=== PATIENT | female | born 2000 | race Caucasian/White ===

== ENCOUNTER 2021-03-25 21:56 | Observation (INO) | payer BC, OTHER ==
[2021-03-25] MEDS ORDERED: SODIUM CHLORIDE 0.9% 1,000 ML IV STA (22:37)
[2021-03-25] MEDS ORDERED: SODIUM CHLORIDE 0.9% 500 ML 500 ML IV STA (22:37)
--- NOTE | 2021-03-25 22:37 | ED ---
Psych HPI - General Chief Complaint: Psychiatric Symptoms Stated Complaint: Mental Health Time Seen by Provider: 03/25/21 22:09 Source: patient, EMS, RN notes reviewed, old records reviewed Mode of arrival: EMS Limitations: no limitations - History of Present Illness Initial Comments: This is a 20-year-old female to the emergency room tonight. Patient's presents today for evaluation regards to psychiatric evaluation. Patient does admit to taking overdose on Tylenol PM tonight. Patient took about 10 pills as a suicide attempt. She is petition by boyfriend who is here in the emergency department. Patient does admit to above to MD Complaint: suicidal ideation, feels depressed -: unknown Associated Psychiatric Symptoms: depression, suicidal ideation History of same: Yes Quality: intermittent, getting worse Improves With: none Worsens With: none Context: not taking psychiatric medications, significant life stressor Associated Symptoms: denies other symptoms Treatments Prior to Arrival: placed on mental health hold If Self Harm: admits thoughts of self harm, has acted on plan - Related Data Home Medications Medication Instructions Recorded Confirmed No Known Home Medications 11/06/15 11/06/15 Allergies Allergy/AdvReac Type Severity Reaction Status Date / Time No Known Allergies Allergy Verified 03/25/21 22:32 Review of Systems ROS Statement: Those systems with pertinent positive or pertinent negative responses have been documented in the HPI. ROS Other: All systems not noted in ROS Statement are negative. Past Medical History Past Medical History: No Reported History History of Any Multi-Drug Resistant Organisms: None Reported Past Surgical History: Section Past Psychological History: ADD/ADHD, Anxiety Smoking Status: Never smoker Past Alcohol Use History: None Reported Past Drug Use History: None Reported General Exam Limitations: no limitations General appearance: alert, in no apparent distress, anxious Head exam: Present: atraumatic, normocephalic, normal inspection Eye exam: Present: normal appearance, PERRL, EOMI. Absent: scleral icterus, conjunctival injection, periorbital swelling ENT exam: Present: normal exam, mucous membranes dry Neck exam: Present: normal inspection. Absent: tenderness, meningismus, lymphadenopathy Respiratory exam: Present: normal lung sounds bilaterally. Absent: respiratory distress, wheezes, rales, rhonchi, stridor Cardiovascular Exam: Present: normal rhythm, tachycardia, normal heart sounds. Absent: systolic murmur, diastolic murmur, rubs, gallop, clicks GI/Abdominal exam: Present: soft, normal bowel sounds. Absent: distended, tenderness, guarding, rebound, rigid Extremities exam: Present: normal inspection, full ROM, normal capillary refill. Absent: tenderness, pedal edema, joint swelling, calf tenderness Back exam: Present: normal inspection Neurological exam: Present: alert, oriented X3, CN II-XII intact Psychiatric exam: Present: normal affect, normal mood Skin exam: Present: warm, dry, intact, normal color. Absent: rash Course Vital Signs 03/25/21 03/25/21 03/25/21 22:27 22:50 23:31 Temperature 98.8 F Pulse Rate 152 H 151 H 146 H Respiratory 18 18 16 Rate Blood Pressure 143/104 145/99 142/99 O2 Sat by Pulse 100 100 100 Oximetry - Reevaluation(s) Reevaluation #1: 03/26/21 00:18 Medical record is reviewed Medical Decision Making - Medical Decision Making 20 female to the ED c/o overdose attempt, patient is suicidal and took tylenol PM as overdose, patient is a significant overdose for both Aleve and Benadryl, patient will be admitted for observation as well as psychiatric evaluation and treatment - Lab Data Result diagrams: 03/25/21 22:51 03/25/21 22:51 Lab Results 03/25/21 03/25/21 03/25/21 Range/Units 22:26 22:26 22:51 WBC 8.9 (3.8-10.6) k/uL RBC 4.76 (3.80-5.40) m/uL Hgb 13.7 (11.4-16.0) gm/dL Hct 40.2 (34.0-46.0) % MCV 84.3 (80.0-100.0) fL MCH 28.7 (25.0-35.0) pg MCHC 34.0 (31.0-37.0) g/dL RDW 13.4 (11.5-15.5) % Plt Count 268 (150-450) k/uL MPV 7.2 Neutrophils % 73 % Lymphocytes % 21 % Monocytes % 3 % Eosinophils % 1 % Basophils % 0 % Neutrophils # 6.5 (1.3-7.7) k/uL Lymphocytes # 1.9 (1.0-4.8) k/uL Monocytes # 0.3 (0-1.0) k/uL Eosinophils # 0.1 (0-0.7) k/uL Basophils # 0.0 (0-0.2) k/uL Sodium (137-145) mmol/L Potassium (3.5-5.1) mmol/L Chloride (98-107) mmol/L Carbon Dioxide (22-30) mmol/L Anion Gap mmol/L BUN (7-17) mg/dL Creatinine (0.52-1.04) mg/dL Est GFR (CKD-EPI)AfAm (>60 ml/min/1.73 sqM) Est GFR (CKD-EPI)NonAf (>60 ml/min/1.73 sqM) Glucose (74-99) mg/dL Calcium (8.4-10.2) mg/dL Total Bilirubin (0.2-1.3) mg/dL AST (14-36) U/L ALT (4-34) U/L Alkaline Phosphatase (38-126) U/L Total Protein (6.3-8.2) g/dL Albumin (3.5-5.0) g/dL Lipase (23-300) U/L Urine HCG, Qual Not Detected (Not Detectd) Salicylates mg/dL Urine Opiates Screen Not Detected (NotDetected) Ur Oxycodone Screen Not Detected (NotDetected) Urine Methadone Screen Not Detected (NotDetected) Ur Propoxyphene Screen Not Detected (NotDetected) Acetaminophen ug/mL Ur Barbiturates Screen Not Detected (NotDetected) U Tricyclic Antidepress Not Detected (NotDetected) Ur Phencyclidine Scrn Not Detected (NotDetected) Ur Amphetamines Screen Not Detected (NotDetected) U Methamphetamines Scrn Not Detected (NotDetected) U Benzodiazepines Scrn Not Detected (NotDetected) Urine Cocaine Screen Not Detected (NotDetected) U Marijuana (THC) Screen Not Detected (NotDetected) Serum Alcohol mg/dL 03/25/21 Range/Units 22:51 WBC (3.8-10.6) k/uL RBC (3.80-5.40) m/uL Hgb (11.4-16.0) gm/dL Hct (34.0-46.0) % MCV (80.0-100.0) fL MCH (25.0-35.0) pg MCHC (31.0-37.0) g/dL RDW (11.5-15.5) % Plt Count (150-450) k/uL MPV Neutrophils % % Lymphocytes % % Monocytes % % Eosinophils % % Basophils % % Neutrophils # (1.3-7.7) k/uL Lymphocytes # (1.0-4.8) k/uL Monocytes # (0-1.0) k/uL Eosinophils # (0-0.7) k/uL Basophils # (0-0.2) k/uL Sodium 141 (137-145) mmol/L Potassium 4.0 (3.5-5.1) mmol/L Chloride 108 H (98-107) mmol/L Carbon Dioxide 20 L (22-30) mmol/L Anion Gap 13 mmol/L BUN 8 (7-17) mg/dL Creatinine 0.61 (0.52-1.04) mg/dL Est GFR (CKD-EPI)AfAm >90 (>60 ml/min/1.73 sqM) Est GFR (CKD-EPI)NonAf >90 (>60 ml/min/1.73 sqM) Glucose 110 H (74-99) mg/dL Calcium 10.0 (8.4-10.2) mg/dL Total Bilirubin 0.3 (0.2-1.3) mg/dL AST 17 (14-36) U/L ALT 13 (4-34) U/L Alkaline Phosphatase 72 (38-126) U/L Total Protein 7.5 (6.3-8.2) g/dL Albumin 4.3 (3.5-5.0) g/dL Lipase 180 (23-300) U/L Urine HCG, Qual (Not Detectd) Salicylates <1.0 mg/dL Urine Opiates Screen (NotDetected) Ur Oxycodone Screen (NotDetected) Urine Methadone Screen (NotDetected) Ur Propoxyphene Screen (NotDetected) Acetaminophen <10.0 ug/mL Ur Barbiturates Screen (NotDetected) U Tricyclic Antidepress (NotDetected) Ur Phencyclidine Scrn (NotDetected) Ur Amphetamines Screen (NotDetected) U Methamphetamines Scrn (NotDetected) U Benzodiazepines Scrn (NotDetected) Urine Cocaine Screen (NotDetected) U Marijuana (THC) Screen (NotDetected) Serum Alcohol <10 mg/dL - EKG Data -: EKG Interpreted by Me (EKG shows sinus tachycardia rate of 57, VA 121 QRS 76 QTC 40) Critical Care Time Critical Care Time: Yes Total Critical Care Time: 31 Disposition Clinical Impression: Depression, Suicidal ideation, Psychosis, Drug-induced psychotic disorder, Anticholinergic syndrome Narrative: Advil PM Overdose Disposition: ADMITTED IP TO THIS HOSP Condition: Serious Is patient prescribed a controlled substance at d/c from ED?: No Referrals: None,Stated [Primary Care Provider] - 1-2 days
[2021-03-25] MEDS ORDERED: LORazepam 2 MG/ML INJ IV STA (22:38)
[2021-03-25 23:00] LABS: Basophils % (A) 0 %; Eosinophils # (A) 0.1 k/uL (0-0.7); Eosinophils % (A) 1 %; HCT 40.2 % (34.0-46.0); HGB 13.7 gm/dL (11.4-16.0); Lymphocytes # (A) 1.9 k/uL (1.0-4.8); Lymphocytes % (A) 21 %; MCH 28.7 pg (25.0-35.0); MCV 84.3 fL (80.0-100.0); Mean Platelet Volume 7.2; Monocytes # (A) 0.3 k/uL (0-1.0); Monocytes % (A) 3 %; Neutrophils # (A) 6.5 k/uL (1.3-7.7); Neutrophils % (A) 73 %; Platelet Count 268 k/uL (150-450); RBC 4.76 m/uL (3.80-5.40); RDW 13.4 % (11.5-15.5); WBC 8.9 k/uL (3.8-10.6)
[2021-03-25 23:07] LABS: Amphetamine Screen,Urine Not Detected (NotDetected); Barbiturate Screen,Urine Not Detected (NotDetected); Benzodiazepines Screen,Urine Not Detected (NotDetected); Cocaine Screen,Urine Not Detected (NotDetected); Methadone Screen, Urine Not Detected (NotDetected); Opiate Screen,Urine Not Detected (NotDetected); Oxycodone Screen, Urine Not Detected (NotDetected); Phencyclidine Screen,Urine Not Detected (NotDetected); Tricyclic Antidepressant,Urine Not Detected (NotDetected); Urn Cannabinoid Scrn Not Detected (NotDetected)
[2021-03-25 23:09] LABS: ALT 13 U/L (4-34); AST 17 U/L (14-36); Acetaminophen <10.0 ug/mL; African American GFR (CKD) >90 (>60 ml/min/1.73 sqM); Albumin 4.3 g/dL (3.5-5.0); Alcohol <10 mg/dL; Alkaline Phosphatase 72 U/L (38-126); Anion Gap 13 mmol/L; Blood Urea Nitrogen 8 mg/dL (7-17); Carbon Dioxide 20 mmol/L (22-30); Chloride 108 mmol/L (98-107); Glucose 110 mg/dL (74-99); Lipase 180 U/L (23-300); Non-African American GFR(CKD) >90 (>60 ml/min/1.73 sqM); Salicylate <1.0 mg/dL; Sodium 141 mmol/L (137-145); Total Bilirubin 0.3 mg/dL (0.2-1.3); Total Protein 7.5 g/dL (6.3-8.2)
[2021-03-26] MEDS ORDERED: DIAZEPAM 5 MG/ML 2 ML INJ IVP STA (00:17)
[2021-03-26] MEDS ORDERED: SODIUM CHLORIDE 0.9% 1,000 ML IV STA ×2 (00:17→00:36)
[2021-03-26] MEDS ORDERED: ACETAMINOPHEN TAB 325 MG TAB PO PRN (00:22)
[2021-03-26] MEDS ORDERED: LORazepam 2 MG/ML INJ IV PRN (00:22)
[2021-03-26] MEDS ORDERED: ONDANSETRON 4 MG/2 ML VIAL IVP PRN (00:22)
[2021-03-26] MEDS ORDERED: NALOXONE 0.4 MG/ML 1 ML VIAL IV PRN (00:22)
[2021-03-26] MEDS: SODIUM CHLORIDE 0.9% 1,000 ML IV SCH ×2 (00:45→08:20)
[2021-03-26 02:26] VITALS: RESP 18
[2021-03-26] MEDS ORDERED: PANTOPRAZOLE 40 MG/10 ML VIAL IVP ONE (03:33)
--- NOTE | 2021-03-26 03:36 | P.HPIM ---
History of Present Illness H&P Date: 03/26/21 Patient is a 20-year-old female with a PMH of depression presented to the emergency room after a suicide attempt by ingestion of Advil PM. The patient reports that she recently had been feeling poorly about herself and that she didn't attempt to harm herself took more than 10 pills of Advil PM (200-38 mg). She reports feeling somewhat anxious but denied any additional complaints. She denied experiencing abdominal pain, nausea, vomiting, or bloody stools. Also denied fevers, chills, chest pain, shortness of breath, cough. EKG in the emergency room revealed sinus tachycardia at 157 bpm. Laboratory evaluation was unremarkable. The case was discussed with poison control as per the ED phys ician who advised to monitor the patient overnight due to elevated risk of bleeding and for anticholinergic symptoms. Review of systems: Pertinent positives and negatives as discussed in HPI, a complete review of systems was performed and all other systems are negative. Physical examination: General: non toxic, no distress, appears at stated age, normal weight Derm: no unusual rashes/lesions no unusual ecchymoses, warm, dry Head: atraumatic, normocephalic, symmetric Eyes: EOMI, no lid lag, anicteric sclera, pupils equal round reactive to light ENT: Nose and ears atraumatic, no thrush, no pharyngeal erythema Neck: No thyromegaly, no cervical lymphadenopathy, trachea midline, supple Mouth: no lip lesion, mucus membranes moist Cardiovascular: Tachycardic, no murmur, positive posterior tibial pulse bilateral, no edema, capillary refill less than 2 seconds Lungs: CTA bilateral, no rhonchi, no rales , no accessory muscle use Abdominal: soft, nontender to palpation, no guarding, no appreciable organomegaly, normal bowel sounds Ext: no gross muscle atrophy, muscle strength 5 out of 5 in all 4 extremities grossly, no contractures, Neuro: CN II-XI grossly intact, light touch intact all 4 extremities, finger to nose within normal limits, Psych: Alert, oriented, anxious affect Assessment/plan Ibuprofen and diphenhydramine overdose -Protonix IV -Ativan when necessary -Cardiac monitoring -Monitor CBC and kidney function Depression with suicidal ideation -Psychiatry consulted -One-to-one observation DVT prophylaxis -IPCDs The patient is admitted with an anticipated less than 2 midnight stay for evaluation of overdose CODE STATUS: Full Code Discussed with: Patient Anticipated discharge date: in am Anticipated discharge place: [facility] Past Medical History Past Medical History: No Reported History Additional Past Medical History / Comment(s): Past suicide attempts and self harm History of Any Multi-Drug Resistant Organisms: None Reported Past Surgical History: Section Past Anesthesia/Blood Transfusion Reactions: No Reported Reaction Past Psychological History: ADD/ADHD, Anxiety Smoking Status: Never smoker Past Alcohol Use History: None Reported Past Drug Use History: None Reported Medications and Allergies Home Medications Medication Instructions Recorded Confirmed Type No Known Home Medications 11/06/15 11/06/15 History Allergies Allergy/AdvReac Type Severity Reaction Status Date / Time No Known Allergies Allergy Verified 03/25/21 22:32 Physical Exam Vitals: Vital Signs Temp Pulse Pulse Resp BP BP Pulse Ox 03/26/21 02:50 157 H 18 03/26/21 01:59 98.1 F 157 H 18 133/90 100 03/26/21 01:48 98.8 F 134 H 16 131/64 98 03/26/21 01:15 134 H 16 131/64 98 03/26/21 00:45 158 H 16 128/102 99 03/25/21 23:31 146 H 16 142/99 100 03/25/21 22:50 151 H 18 145/99 100 03/25/21 22:27 98.8 F 152 H 18 143/104 100 Intake and Output 03/25/21 03/25/21 03/26/21 14:59 22:59 06:59 Other: Voiding Method Toilet Weight 58.967 kg 58.967 kg Results CBC & Chem 7: 03/25/21 22:51 03/25/21 22:51 Labs: Abnormal Lab Results - Last 24 Hours (Table) 03/25/21 Range/Units 22:51 Chloride 108 H (98-107) mmol/L Carbon Dioxide 20 L (22-30) mmol/L Glucose 110 H (74-99) mg/dL Thrombosis Risk Factor Assmnt - Choose All That Apply Any of the Below Risk Factors Present?: No Other Risk Factors: No Other congenital or acquired thrombophilia - If yes, enter type in comment: No Thrombosis Risk Factor Assessment Level: Very Low Risk
[2021-03-26 06:41] LABS: HCT 34.6 % (34.0-46.0); HGB 11.7 gm/dL (11.4-16.0); MCHC 33.7 g/dL (31.0-37.0); MCV 86.2 fL (80.0-100.0); Mean Platelet Volume 7.1; Platelet Count 224 k/uL (150-450); RBC 4.02 m/uL (3.80-5.40); RDW 13.6 % (11.5-15.5)
[2021-03-26 06:55] LABS: African American GFR (CKD) >90 (>60 ml/min/1.73 sqM); Anion Gap 6 mmol/L; Blood Urea Nitrogen 2 mg/dL (7-17); Calcium 8.1 mg/dL (8.4-10.2); Carbon Dioxide 19 mmol/L (22-30); Chloride 115 mmol/L (98-107); Glucose 88 mg/dL (74-99); Non-African American GFR(CKD) >90 (>60 ml/min/1.73 sqM); Potassium 4.2 mmol/L (3.5-5.1); Sodium 140 mmol/L (137-145)
[2021-03-26] MEDS ORDERED: PANTOPRAZOLE 40 MG/10 ML VIAL IVP SCH (09:00)
[2021-03-26 13:46] LABS: African American GFR (CKD) >90 (>60 ml/min/1.73 sqM); Anion Gap 5 mmol/L; Blood Urea Nitrogen <2 mg/dL (7-17); Calcium 8.6 mg/dL (8.4-10.2); Carbon Dioxide 20 mmol/L (22-30); Chloride 114 mmol/L (98-107); Glucose 81 mg/dL (74-99); Non-African American GFR(CKD) >90 (>60 ml/min/1.73 sqM); Potassium 3.5 mmol/L (3.5-5.1); Sodium 139 mmol/L (137-145)
--- NOTE | 2021-03-26 14:30 | P.PN ---
Progress Note - Text Progress Note Date: 03/26/21 Medically optimized for discharge. Formal discharge summary to follow.
[2021-03-26 15:47] VITALS: BP 126/91; PULSE 114; TEMP 98.9
--- NOTE | 2021-03-26 16:45 | P.CN ---
Psychiatric Consult - . Consult date: 03/26/21 Consult:: 03/26/21 16:21 Psychiatric consultation This 20-yr old female living with her boyfriend and mother of 2 -yr old boy from her previous relationship was admitted to the emergency presenting with suicidal ideation and impulsive suicidal attempt with overdosae with 10 Advil. She was stablized amd was discharged by this afternoon from the medical unit . She did not present with any adverse sequela to her overdose; No loss of consciousness or no GIP hemmorhage. She was asssessed by the Psychiatric emergency psychiatric health care provider regarding her potential brief admisison. her male friend petitioned her for psychiatric stabilization which she was reluctant to consdier seriously. Chief complaint; Uanble to cope and impulsive drug overdose HPI: With no previous psychiatric involvemnet with [facility], she has been very familiar with the mental health framework of reference with regard the diagnosis of BPD: Borderline personality disorder. She talked about her therapeutic experiences with her therapists, through intensive outpatient counselling session. once weekly. She did not have any regular psychiagric contact and appeared to develop negative attitude and reaction towards medication . She was unaware of the wide range of Rxs options and rTMS options. She identified the major stressor to be related to her insecure attachment towards her son. She did nto provide any history of post- depression: she focussed primarily on the [place] II disorder but later on she was found to be sobbing in her bed. She was not concerned over her medical condition; she was given a reassurance that she would not have any adverse adverse events from the overdose. She talked at some lenght about her argument with her boyfriend who was concerned for her mood instability. She faield to recognzie mood disorder co-morbidity was an important ingredient to Bipolar disroder. She was feeling highly anxious over the custody arrangement wherby her 2-yr son would be spending 6-month with his biological father in [place] . She would have to agree on direct contact for the remainder 6 months. the nature of her attachment and nurturing experiences relative to her mood changes were unknown. She admitted she mayhave a ADHD and ADH in eh past and related her impulsive suicidal attempt to the core ADHD symptoms. She did not give much credit to the early drug treatment for ADHD: psychostimulants. She was not aware of the use of Inturniv and Strattera whcih maybe better alternative for her ADHD. When asked whether she had sufficient protective tactics to prevent future suicidal attempts. She repeatedly stated she did not want to or to ruminate repeatedly over dying. She dismissed the seriiousness of drug overdose. She talked about she would reconnect with her therapist and make use of her crisis support in the future. Past psychiatric history: ADHD. Borderline personality disorder. the psychaitric data are unavailable for review. past substance use history: She denied she has substance use history. Family history of psychiatric and substance use was unknown MSE: She was resting comfortably in her bed with iv line in palce. No adverse change in her vitals. Nurse was awaiting formal medical discharge soon but was waiting for filing petition for psychiatric admisison by late afternoon Mar 26, 2021.Speech cohrent and articulate. she cried briefly in the context of her argument with her boyfriend and separation from her 2-yr son next week. Affect : highly anxious and sad, with no overt psychotic features of delusions or hallucinations. She repeatedly she did not want to and did not have repeated fixed suicidal ideation or plan. She did not further elaborate on "impulsive'. . Cogniton: oriented. command above average vocabulary and knowledge of psychiatric syndromes. Insight and judgment was marginal Diagnosis: given her history, She may have comorbid recurrent MAJOR DEPRESSIVE Disorder in addiction to her Borderline personality. No manic history. However, her relatiionship has to be further clarified . She may benefit from brief psychiatric admission with re-emphasis on Rx as the treatment option. Discharge Plan: pending petition result.
--- NOTE | 2021-03-26 17:39 | P.DS ---
Providers Date of admission: 03/26/21 00:22 Expected date of discharge: 03/26/21 Attending physician: Zeke Oscar MD Consults: 03/26/21 00:23 Consult Physician Routine Consulting Provider: Simone Carcamo Consult Reason/Comments: SI,OD Do you want consulting provider notified?: Already Contacted Primary care physician: Stated None Hospital Course: Discharge Diagnosis: Ibuprofen and diphenhydramine overdose Suicide attempt Depression Hyperchloremic metabolic acidosis secondary to IV fluid resuscitation. Hospital Course: A 20-year-old female with no significant past medical history who presented to the ER after a suicide attempt by ingestion of Advil PM. She had been feeling poorly and purposely took the pills. She denied any nausea, vomiting, or diarrhea. She is given IV fluids. Her kidney function continue to maintain well. She was determined medically stable for discharge. She was seen by Psychiatry who recommended mental health unit placement. Follow-up: Suggest PPI for the next 1 week. Patient seen and examined at bedside. She denies any nausea, vomiting, upset stomach, stomach pain or indigestion. She is upset about her boyfriend not being able to come off, but realizes she needs to be on the mental health unit and that she needs help. Vital signs reviewed and stable. General: non toxic, no distress, appears at stated age Derm: warm, dry Head: atraumatic, normocephalic, symmetric Eyes: EOMI, no lid lag, anicteric sclera Mouth: no lip lesion, mucus membranes moist Cardiovascular: S1S2 reg, no murmur, positive posterior tibial pulse bilateral, Lungs: CTA bilateral, no rhonchi, no rales , no accessory muscle use Abdominal: soft, nontender to palpation, no guarding, no appreciable organomegaly Ext: no gross muscle atrophy, no edema, no contractures Neuro: CN II-XI grossly intact, no focal neuro deficits Psych: Alert, oriented, appropriate affect A total of 25 minutes of time were spent preparing this complex discharge summary . Patient Condition at Discharge: Stable Plan - Discharge Summary New Discharge Prescriptions: New Pantoprazole Sodium [Protonix] 40 mg PO DAILY #30 tab Continue Norgestimate-Ethinyl Estradiol [Sprintec 28 Day Tablet] 1 tab PO DAILY Discharge Medication List Norgestimate-Ethinyl Estradiol [Sprintec 28 Day Tablet] 1 tab PO DAILY 03/26/21 [History] Pantoprazole Sodium [Protonix] 40 mg PO DAILY #30 tab 03/26/21 [Rx] Follow up Appointment(s)/Referral(s): None,Stated [Primary Care Provider] - 1-2 days Patient Instructions/Handouts: Depression (DC), Suicide Prevention (DC) Discharge Disposition: TRANSFER TO PSYCH HOSP/UNIT
--- NOTE | 2021-03-29 12:44 | P.DS ---
Providers Date of admission: 03/26/21 00:22 Expected date of discharge: 03/29/21 Attending physician: Zeke Oscar MD Consults: 03/26/21 00:23 Consult Physician Routine Consulting Provider: Simone Carcamo Consult Reason/Comments: SI,OD Do you want consulting provider notified?: Already Contacted Primary care physician: Stated None - Discharge Diagnosis(es) (1) Major depressive disorder Status: Acute Priority: High (2) Borderline personality disorder Status: Chronic Priority: Medium Hospital Course: Admission HPI: Initial psychiatric evaluation was completed on 03/26/[address] Bailey who wrote: "This 20-yr old female living with her boyfriend and mother of 2 -yr old boy from her previous relationship was admitted to the emergency presenting with suicidal ideation and impulsive suicidal attempt with overdosae with 10 Advil. She was stablized amd was discharged by this afternoon from the medical unit . She did not present with any adverse sequela to her overdose; No loss of consciousness or no GIP hemmorhage. She was asssessed by the Psychiatric emergency psychiatric health care provider regarding her potential brief admisison. her male friend petitioned her for psychiatric stabilization which she was reluctant to consdier seriously. Chief complaint; Uanble to cope and impulsive drug overdose HPI: With no previous psychiatric involvemnet with [facility], she has been very familiar with the mental health framework of reference with regard the diagnosis of BPD: Borderline personality disorder. She talked about her therapeutic experiences with her therapists, through intensive outpatient counselling session. once weekly. She did not have any regular psychiagric contact and appeared to develop negative attitude and reaction towards medication . She was unaware of the wide range of Rxs options and rTMS options. She identified the major stressor to be related to her insecure attachment towards her son. She did nto provide any history of post- depression: she focussed primarily on the [place] II disorder but later on she was found to be sobbing in her bed. She was not concerned over her medical condition; she was given a reassurance that she would not have any adverse adverse events from the overdose. She talked at some lenght about her argument with her boyfriend who was concerned for her mood instability. She faield to recognzie mood disorder co-morbidity was an important ingredient to Bipolar disroder. She was feeling highly anxious over the custody arrangement karon her 2-yr son would be spending 6-month with his biological father in [place] . She would have to agree on direct contact for the remainder 6 months. the nature of her attachment and nurturing experiences relative to her mood changes were unknown. She admitted she mayhave a ADHD and ADH in eh past and related her impulsive suicidal attempt to the core ADHD symptoms. She did not give much credit to the early drug treatment for ADHD: psychostimulants. She was not aware of the use of Inturniv and Strattera whcih maybe better alternative for her ADHD. When asked whether she had sufficient protective tactics to prevent future suicidal attempts. She repeatedly stated she did not want to or to ruminate repeatedly over dying. She dismissed the seriiousness of drug overdose. She talked about she would reconnect with her therapist and make use of her crisis support in the future." Hospital course: Upon admission to the unit patient was initially presenting as euthymic with some lability in mood. She however displayed fair insight and judgment into her condition and her diagnosis of borderline personality disorder. The patient was evaluated by Dr Bailey and after discussion with the patient it was agreed not to start any psychtropic medications and to rather focus on CBT and DBT for Borderline Personality symptoms. On the day of discharge, the patient is not reporting any suicidal or homicidal ideation, intention, and/or plan. She is not reporting any access to firearms or other weapons. She reports no auditory or visual hallucinations. She denies any paranoia or other delusions. The patient remains future oriented and is excited to go back to her outpatient appointments for therapy. Prior to discharge, family meeting will be arranged by social welfare clerk to answer any questions and ensure safety. Significant amount of safety planning occurred with the patient between this provider as well as with staff including identifying potential triggers for her mood dysregulation, exercising of appropriate coping skills, and the utilization of resources. Mental status exam: General Appearance: Patient appears to be stated age is alert, pleasant, and cooperative. Patient is in no acute distress and has fair hygiene and grooming Behavior: Patient is calmly seated without any agitated behavior. Eye contact is appropriate. Speech: Patient's speech is fluent and nonpressured. Mood/Affect: Patient reports their mood is "feeling good", affect is congruent and euthymic to bright. Suicidality/Homicidality: Patient denies having any suicidal or homicidal ideation intent or plan. Perceptions: Patient denies any auditory or visual hallucinations. Though content/process: There is no evidence of any delusional thought content and thought process is linear and goal-directed. Patient is future oriented. Memory and concentration: AOX3, grossly intact for the purposes of this session. Can spell "WORLD" backwards correctly. Judgment and insight: Improved with guarded prognosis Vital Signs Temp 98.9 F 03/26/21 15:46 Pulse 114 H 03/26/21 15:46 Resp 18 03/26/21 15:46 BP 126/91 03/26/21 15:46 Pulse Ox 98 03/26/21 15:46 Impression: Major depressive disorder Borderline personality disorder Plan: -Continue with discharge today as patient has improved and stabilized psychiatrically and is not currently an imminent threat to herself and/or others. Patient will remain at chronically elevated risk for harm to self and/or others due to her impulsivity. -Social work to arrange for and conduct family meeting to ensure safety upon discharge and answer any questions/concerns. Social work also to arrange for patients follow up appointments for psychiatric care along with follow up with primary care provider. -Patient counseled on abstaining from recreational drugs and marijuana and alcohol. Was informed/educated on the adverse effects on their physical and mental health. Patient verbally agreed and understood. -Patient was instructed to return to the hospital or seek immediate medical care if their psychiatric or medical symptoms do worsen or reoccur. -Strongly recommend outpatient psychotherapy - DBT discussed with patient in detail. Allergies Allergy/AdvReac Type Severity Reaction Status Date / Time No Known Allergies Allergy Verified 03/26/21 07:00 Laboratory Results WBC 7.0 k/uL (3.8-10.6) 03/26/21 06:11 RBC 4.02 m/uL (3.80-5.40) 03/26/21 06:11 Hgb 11.7 gm/dL (11.4-16.0) 03/26/21 06:11 Hct 34.6 % (34.0-46.0) 03/26/21 06:11 MCV 86.2 fL (80.0-100.0) 03/26/21 06:11 MCH 29.0 pg (25.0-35.0) 03/26/21 06:11 MCHC 33.7 g/dL (31.0-37.0) 03/26/21 06:11 RDW 13.6 % (11.5-15.5) 03/26/21 06:11 Plt Count 224 k/uL (150-450) 03/26/21 06:11 MPV 7.1 03/26/21 06:11 Neutrophils % 73 % 03/25/21 22:51 Lymphocytes % 21 % 03/25/21 22:51 Monocytes % 3 % 03/25/21 22:51 Eosinophils % 1 % 03/25/21 22:51 Basophils % 0 % 03/25/21 22:51 Neutrophils # 6.5 k/uL (1.3-7.7) 03/25/21 22:51 Lymphocytes # 1.9 k/uL (1.0-4.8) 03/25/21 22:51 Monocytes # 0.3 k/uL (0-1.0) 03/25/21 22:51 Eosinophils # 0.1 k/uL (0-0.7) 03/25/21 22:51 Basophils # 0.0 k/uL (0-0.2) 03/25/21 22:51 Sodium 139 mmol/L (137-145) 03/26/21 13:14 Potassium 3.5 mmol/L (3.5-5.1) 03/26/21 13:14 Chloride 114 mmol/L (98-107) H 03/26/21 13:14 Carbon Dioxide 20 mmol/L (22-30) L 03/26/21 13:14 Anion Gap 5 mmol/L 03/26/21 13:14 BUN <2 mg/dL (7-17) L 03/26/21 13:14 Creatinine 0.53 mg/dL (0.52-1.04) 03/26/21 13:14 Est GFR (CKD-EPI)AfAm >90 (>60 ml/min/1.73 sqM) 03/26/21 13:14 Est GFR (CKD-EPI)NonAf >90 (>60 ml/min/1.73 sqM) 03/26/21 13:14 Glucose 81 mg/dL (74-99) 03/26/21 13:14 Calcium 8.6 mg/dL (8.4-10.2) 03/26/21 13:14 Total Bilirubin 0.3 mg/dL (0.2-1.3) 03/25/21 22:51 AST 17 U/L (14-36) 03/25/21 22:51 ALT 13 U/L (4-34) 03/25/21 22:51 Alkaline Phosphatase 72 U/L (38-126) 03/25/21 22:51 Total Protein 7.5 g/dL (6.3-8.2) 03/25/21 22:51 Albumin 4.3 g/dL (3.5-5.0) 03/25/21 22:51 Lipase 180 U/L (23-300) 03/25/21 22: TSH 2.880 mIU/L (0.465-4.680) 03/25/21 22:51 Urine HCG, Qual Not Detected (Not Detectd) 03/25/21 22: Salicylates <1.0 mg/dL 03/25/21 22:51 Urine Opiates Screen Not Detected (NotDetected) 03/25/21 22:26 Ur Oxycodone Screen Not Detected (NotDetected) 03/25/21 22: Urine Methadone Screen Not Detected (NotDetected) 03/25/21 22:26 Ur Propoxyphene Screen Not Detected (NotDetected) 03/25/21 22:26 Acetaminophen <10.0 ug/mL 03/25/21 22:51 Ur Barbiturates Screen Not Detected (NotDetected) 03/25/21 22:26 U Tricyclic Antidepress Not Detected (NotDetected) 03/25/21 22:26 Ur Phencyclidine Scrn Not Detected (NotDetected) 03/25/21 22:26 Ur Amphetamines Screen Not Detected (NotDetected) 03/25/21 22:26 U Methamphetamines Scrn Not Detected (NotDetected) 03/25/21 22:26 U Benzodiazepines Scrn Not Detected (NotDetected) 03/25/21 22:26 Urine Cocaine Screen Not Detected (NotDetected) 03/25/21 22:26 U Marijuana (THC) Screen Not Detected (NotDetected) 03/25/21 22:26 Serum Alcohol <10 mg/dL 03/25/21 22:51 Patient Condition at Discharge: Stable Plan - Discharge Summary New Discharge Prescriptions: Continue Norgestimate-Ethinyl Estradiol [Sprintec 28 Day Tablet] 1 tab PO DAILY Discharge Medication List Norgestimate-Ethinyl Estradiol [Sprintec 28 Day Tablet] 1 tab PO DAILY 03/26/21 [History] Follow up Appointment(s)/Referral(s): None,Stated [Primary Care Provider] - 1-2 days Patient Instructions/Handouts: Depression (DC), Suicide Prevention (DC) Discharge Disposition: TRANSFER TO PSYCH HOSP/UNIT
== END 2021-03-26 17:53 ==
LOC: EC 21:56 → 3SCARD 03-26 00:22
PROVIDERS: ADMIT Internal Medicine; ATTEND Internal Medicine
DX: T45.0X2A Poisoning by antiallergic and antiemetic drugs, intentional self-harm, initial encounter (principal); T39.312A Poisoning by propionic acid derivatives, intentional self-harm, initial encounter; F60.3 Borderline personality disorder; F32.A Depression, unspecified; F41.9 Anxiety disorder, unspecified; F90.9 Attention-deficit hyperactivity disorder, unspecified type; E87.8 Other disorders of electrolyte and fluid balance, not elsewhere classified; R45.87 Impulsiveness; E87.2 Acidosis; R00.0 Tachycardia, unspecified; Z63.79 Other stressful life events affecting family and household; Z91.51 Personal history of suicidal behavior; F29 Unspecified psychosis not due to a substance or known physiological condition
CPT/HCPCS: 96376; 96361 ×3; 96375 ×2; 82075; 96374; 99291; 36415; 93005; 80053; 80048; 84443; 83690; 85025; 85027; 81025; 80306; 80143; 80179; G0378; G0480; J2060; J3360; C9113; 80320

== ENCOUNTER 2021-03-26 18:17 | Inpatient (IN) | payer MEDICAID ==
[2021-03-26] MEDS ORDERED: MAG HYDROX/AL HYDROX/SIMETH 30 ML CUP PO PRN (18:24)
[2021-03-26] MEDS ORDERED: LORazepam 1 MG TAB PO PRN (18:24)
[2021-03-26] MEDS ORDERED: ACETAMINOPHEN TAB 325 MG TAB PO PRN (18:24)
[2021-03-26] MEDS ORDERED: MAGNESIUM HYDROXIDE 2,400 MG/10 ML CUP PO PRN (18:24)
[2021-03-26] MEDS ORDERED: HALOPERIDOL LACTATE 5 MG/ML 1 ML VIAL IM PRN (18:24)
[2021-03-26] MEDS ORDERED: LORazepam 2 MG/ML INJ IM PRN (18:27)
--- NOTE | 2021-03-27 01:55 | P.PN ---
Progress Note - Text Progress Note Date: 03/27/21 notified by RN about this new admission but patient sleeping at this time
[2021-03-27] MEDS: NICOTINE 14MG/24HR PATCH TRANSDERM SCH (09:04)
[2021-03-27 09:56] LABS: Basophils % (A) 1 %; Eosinophils # (A) 0.2 k/uL (0-0.7); Eosinophils % (A) 3 %; HCT 38.8 % (34.0-46.0); HGB 12.6 gm/dL (11.4-16.0); Lymphocytes # (A) 1.6 k/uL (1.0-4.8); Lymphocytes % (A) 27 %; MCH 28.5 pg (25.0-35.0); MCHC 32.5 g/dL (31.0-37.0); MCV 87.6 fL (80.0-100.0); Mean Platelet Volume 7.1; Monocytes # (A) 0.2 k/uL (0-1.0); Monocytes % (A) 4 %; Neutrophils # (A) 3.7 k/uL (1.3-7.7); Neutrophils % (A) 64 %; Platelet Count 220 k/uL (150-450); RBC 4.42 m/uL (3.80-5.40); RDW 13.8 % (11.5-15.5); WBC 5.8 k/uL (3.8-10.6)
[2021-03-27 10:11] LABS: ALT 14 U/L (4-34); AST 17 U/L (14-36); African American GFR (CKD) >90 (>60 ml/min/1.73 sqM); Alkaline Phosphatase 51 U/L (38-126); Anion Gap 10 mmol/L; Blood Urea Nitrogen 4 mg/dL (7-17); Calcium 9.3 mg/dL (8.4-10.2); Carbon Dioxide 22 mmol/L (22-30); Chloride 109 mmol/L (98-107); Glucose 81 mg/dL (74-99); Non-African American GFR(CKD) >90 (>60 ml/min/1.73 sqM); Sodium 141 mmol/L (137-145); Total Bilirubin 0.5 mg/dL (0.2-1.3); Total Protein 6.9 g/dL (6.3-8.2)
[2021-03-27] MEDS ORDERED: LORATADINE 10 MG TAB PO PRN (15:53)
--- NOTE | 2021-03-27 17:36 | P.HPMEDMHU ---
History of Present Illness H&P Date: 03/27/21 Chief Complaint: congestion 20-year-old female with no significant past medical history who presented to the ER after a suicide attempt by ingestion of Advil PM. She had been feeling poorly and purposely took the pills. She denied any nausea, vomiting, or diarrhea. She is given IV fluids. Her kidney function continue to maintain well. She was determined medically stable for discharge. She was seen by Psychiatry who recommended mental health unit placement. Patient was reevaluated mental health unit. Patient seen and examined. She denies any nausea, vomiting. She denies any abdominal pain or acid reflux. She does complain of some chronic sinusitis which is unchanged from baseline. Pertinent positives and negatives as discussed in HPI, a complete review of systems was performed and all other systems are negative. General: non toxic, no distress, appears at stated age Derm: warm, dry Head: atraumatic, normocephalic, symmetric Eyes: EOMI, no lid lag, anicteric sclera, pupils equal round reactive to light ENT: Nose and ears atraumatic, no thrush, + pharyngeal erythema without exudate Neck: No thyromegaly, no cervical lymphadenopathy, trachea midline, supple Mouth: no lip lesion, mucus membranes moist Cardiovascular: S1S2 reg, no murmur, positive posterior tibial pulse bilateral, no edema, capillary refill less than 2 seconds Lungs: clear to ascultation bilateral, no ronchi, no rales, no wheeze, no accessory muscle use Abdominal: soft, nontender to palpation, no guarding, no appreciable organomegaly, normal bowel sounds Ext: no gross muscle atrophy, muscle strength muscle strength 5 out of 5 in all 4 extremities, no contractures Neuro: CN II-XI grossly intact, light touch intact all 4 extremities, finger to nose within normal limits, Psych: Alert, oriented, appropriate affect Chronic sinusitis -Claritin as needed Ibuprofen and diphenhydramine overdose -PPI 7 days Suicide attempt -Your psych management Pertinent positives and negatives as discussed in HPI, a complete review of systems was performed and all other systems are negative. Past Medical History Past Medical History: No Reported History Additional Past Medical History / Comment(s): Past suicide attempts and self harm History of Any Multi-Drug Resistant Organisms: None Reported Past Surgical History: Section Past Anesthesia/Blood Transfusion Reactions: No Reported Reaction Past Psychological History: ADD/ADHD, Anxiety Smoking Status: Never smoker Past Alcohol Use History: None Reported Past Drug Use History: None Reported Medications and Allergies Home Medications Medication Instructions Recorded Confirmed Type Norgestimate-Ethinyl Estradiol 1 tab PO DAILY 03/26/21 03/26/21 History [Sprintec 28 Day Tablet] Pantoprazole Sodium [Protonix] 40 mg PO DAILY #30 tab 03/26/21 03/26/21 Rx Allergies Allergy/AdvReac Type Severity Reaction Status Date / Time No Known Allergies Allergy Verified 03/26/21 07:00 Physical Exam Osteopathic Statement: *. No significant issues noted on an osteopathic structural exam other than those noted in the History and Physical/Consult. Vitals: Vital Signs Temp Pulse Resp BP Pulse Ox 03/27/21 06:34 98.6 F 91 142/68 96 03/26/21 19:16 97.5 F L 100 16 122/84 100 Cranial Nerve Examination - Cranial Nerves Cranial Nerve II- Optic: Intact Cranial Nerve III- Oculomotor: Intact Cranial Nerve IV- Trochlear: Intact Cranial Nerve V- Trigeminal: Intact Cranial Nerve - Abducens: Intact Cranial Nerve VII- Facial: Intact Cranial Nerve VIII- Auditory: Intact Cranial Nerve IX- Glossopharyngeal: Intact Cranial Nerve X- Vagus: Intact Cranial Nerve XI- Accessory: Intact Cranial Nerve XII- Hypoglossal: Intact Results CBC & Chem 7: 03/27/21 09:30 03/27/21 09:30 Labs: Abnormal Lab Results - Last 24 Hours (Table) 03/27/21 Range/Units 09:30 Chloride 109 H (98-107) mmol/L BUN 4 L (7-17) mg/dL
[2021-03-27] MEDS: PANTOPRAZOLE 40 MG TABLET PO SCH (18:38)
--- NOTE | 2021-03-27 18:41 | P.PN ---
Subjective Progress Note Date: 03/27/21 Principal diagnosis: Progress note She was seen earlier by me upon consultation from medical team. afer she overdosed with Advil. She was somewhat shaky at that time with sobbing. She was preoccupied with the implications of Borderline personality disorder and was anxious over her 2-yr son being departed for 6 months to [place] to live with his biolgoical father. She continued to have unstbale relationship but seemed to hodl that Rx would not help her. as she has too many adverse events. MSE currently not suicidal . fully cooperative. Lability affect has largely resolved. No psychotic feature of hallucinations or delusions. Affect: slightly anxious . no hopelessness. Cognition; Oriented, fair insight into her condition Diagnosis: Depressive disorder NOS management: early discharge by monday. Pt refused to acccept any Rx. Objective - Vital Signs Vital signs: Vital Signs Temp 98.6 F 03/27/21 06:34 Pulse 91 03/27/21 06:34 Resp 16 03/26/21 19:16 BP 142/68 03/27/21 06:34 Pulse Ox 96 03/27/21 06:34 Intake & Output 03/26/21 03/27/21 03/27/21 18:59 06:59 18:59 Weight 46.72 kg - Labs CBC & Chem 7: 03/27/21 09:30 03/27/21 09:30 Labs: Abnormal Lab Results - Last 24 Hours (Table) 03/27/21 Range/Units 09:30 Chloride 109 H (98-107) mmol/L BUN 4 L (7-17) mg/dL
[2021-03-27] MEDS: SPRINTEC PO SCH (20:59)
[2021-03-27 23:07] LABS: Chol/HDL Ratio 3.45 Ratio; LDL Cholesterol,Calculated 98.5 mg/dL (0.0-131.0); VLDL Calculation 14.38 mg/dL (5.00-40.00)
[2021-03-28] MEDS: PANTOPRAZOLE 40 MG TABLET PO SCH (09:01)
[2021-03-28] MEDS: NICOTINE 14MG/24HR PATCH TRANSDERM SCH (09:01)
--- NOTE | 2021-03-28 18:40 | P.PN ---
Subjective Progress Note Date: 03/28/21 Principal diagnosis: Progress note She was seen briefly yesterday and today in the group setting > She was participating in the social group and did not complain of further loss of attachment with regard to her son. She did not want any Rx relying on CBT for management her Borderline PD symptoms. No behavioral outbursts. No psychotic symptoms Diagnosis. depressive Disorder NOS. Borderline personality disorder. Discharge Plan; On Monday early discharge . Objective - Vital Signs Vital signs: Vital Signs Temp 98.2 F 03/28/21 06:52 Pulse 80 03/28/21 06:52 Resp 16 03/28/21 06:52 BP 107/51 03/28/21 06:52 Pulse Ox 98 03/28/21 06:52 Intake & Output 03/27/21 03/28/21 03/28/21 18:59 06:59 18:59 Weight 55.7 kg - Labs CBC & Chem 7: 03/27/21 09:30 03/27/21 09:30
[2021-03-28] MEDS: SPRINTEC PO SCH (21:34)
[2021-03-29 06:41] VITALS: BP 114/62; PULSE 77; RESP 12; TEMP 97.9
[2021-03-29] MEDS: NICOTINE 14MG/24HR PATCH TRANSDERM SCH (09:18)
[2021-03-29] MEDS: PANTOPRAZOLE 40 MG TABLET PO SCH (09:18)
--- NOTE | 2021-03-30 11:00 | P.DS ---
Providers Date of admission: 03/26/21 00:22 Expected date of discharge: 03/29/21 Attending physician: Zeke Oscar MD Consults: 03/26/21 00:23 Consult Physician Routine Consulting Provider: Simone Carcamo Consult Reason/Comments: SI,OD Do you want consulting provider notified?: Already Contacted Primary care physician: Stated None - Discharge Diagnosis(es) (1) Major depressive disorder Status: Acute Priority: High (2) Borderline personality disorder Status: Chronic Priority: Medium Hospital Course: Admission HPI: Initial psychiatric evaluation was completed on 03/26/[address] Bailey who wrote: "This 20-yr old female living with her boyfriend and mother of 2 -yr old boy from her previous relationship was admitted to the emergency presenting with suicidal ideation and impulsive suicidal attempt with overdosae with 10 Advil. She was stablized amd was discharged by this afternoon from the medical unit . She did not present with any adverse sequela to her overdose; No loss of consciousness or no GIP hemmorhage. She was asssessed by the Psychiatric emergency psychiatric health care provider regarding her potential brief admisison. her male friend petitioned her for psychiatric stabilization which she was reluctant to consdier seriously. Chief complaint; Uanble to cope and impulsive drug overdose HPI: With no previous psychiatric involvemnet with [facility], she has been very familiar with the mental health framework of reference with regard the diagnosis of BPD: Borderline personality disorder. She talked about her therapeutic experiences with her therapists, through intensive outpatient counselling session. once weekly. She did not have any regular psychiagric contact and appeared to develop negative attitude and reaction towards medication . She was unaware of the wide range of Rxs options and rTMS options. She identified the major stressor to be related to her insecure attachment towards her son. She did nto provide any history of post- depression: she focussed primarily on the [place] II disorder but later on she was found to be sobbing in her bed. She was not concerned over her medical condition; she was given a reassurance that she would not have any adverse adverse events from the overdose. She talked at some lenght about her argument with her boyfriend who was concerned for her mood instability. She faield to recognzie mood disorder co-morbidity was an important ingredient to Bipolar disroder. She was feeling highly anxious over the custody arrangement karon her 2-yr son would be spending 6-month with his biological father in [place] . She would have to agree on direct contact for the remainder 6 months. the nature of her attachment and nurturing experiences relative to her mood changes were unknown. She admitted she mayhave a ADHD and ADH in eh past and related her impulsive suicidal attempt to the core ADHD symptoms. She did not give much credit to the early drug treatment for ADHD: psychostimulants. She was not aware of the use of Inturniv and Strattera whcih maybe better alternative for her ADHD. When asked whether she had sufficient protective tactics to prevent future suicidal attempts. She repeatedly stated she did not want to or to ruminate repeatedly over dying. She dismissed the seriiousness of drug overdose. She talked about she would reconnect with her therapist and make use of her crisis support in the future." Hospital course: Upon admission to the unit patient was initially presenting as euthymic with some lability in mood. She however displayed fair insight and judgment into her condition and her diagnosis of borderline personality disorder. The patient was evaluated by Dr Bailey and after discussion with the patient it was agreed not to start any psychtropic medications and to rather focus on CBT and DBT for Borderline Personality symptoms. On the day of discharge, the patient is not reporting any suicidal or homicidal ideation, intention, and/or plan. She is not reporting any access to firearms or other weapons. She reports no auditory or visual hallucinations. She denies any paranoia or other delusions. The patient remains future oriented and is excited to go back to her outpatient appointments for therapy. Prior to discharge, family meeting will be arranged by social media developer to answer any questions and ensure safety. Significant amount of safety planning occurred with the patient between this provider as well as with staff including identifying potential triggers for her mood dysregulation, exercising of appropriate coping skills, and the utilization of resources. Mental status exam: General Appearance: Patient appears to be stated age is alert, pleasant, and cooperative. Patient is in no acute distress and has fair hygiene and grooming Behavior: Patient is calmly seated without any agitated behavior. Eye contact is appropriate. Speech: Patient's speech is fluent and nonpressured. Mood/Affect: Patient reports their mood is "feeling good", affect is congruent and euthymic to bright. Suicidality/Homicidality: Patient denies having any suicidal or homicidal ideation intent or plan. Perceptions: Patient denies any auditory or visual hallucinations. Though content/process: There is no evidence of any delusional thought content and thought process is linear and goal-directed. Patient is future oriented. Memory and concentration: AOX3, grossly intact for the purposes of this session. Can spell "WORLD" backwards correctly. Judgment and insight: Improved with guarded prognosis Vital Signs Temp 98.9 F 03/26/21 15:46 Pulse 114 H 03/26/21 15:46 Resp 18 03/26/21 15:46 BP 126/91 03/26/21 15:46 Pulse Ox 98 03/26/21 15:46 Impression: Major depressive disorder Borderline personality disorder Plan: -Continue with discharge today as patient has improved and stabilized psychiatrically and is not currently an imminent threat to herself and/or others. Patient will remain at chronically elevated risk for harm to self and/or others due to her impulsivity. -Social work to arrange for and conduct family meeting to ensure safety upon discharge and answer any questions/concerns. Social work also to arrange for patients follow up appointments for psychiatric care along with follow up with primary care provider. -Patient counseled on abstaining from recreational drugs and marijuana and alcohol. Was informed/educated on the adverse effects on their physical and mental health. Patient verbally agreed and understood. -Patient was instructed to return to the hospital or seek immediate medical care if their psychiatric or medical symptoms do worsen or reoccur. -Strongly recommend outpatient psychotherapy - DBT discussed with patient in detail. Allergies Allergy/AdvReac Type Severity Reaction Status Date / Time No Known Allergies Allergy Verified 03/26/21 07:00 Laboratory Results WBC 7.0 k/uL (3.8-10.6) 03/26/21 06:11 RBC 4.02 m/uL (3.80-5.40) 03/26/21 06:11 Hgb 11.7 gm/dL (11.4-16.0) 03/26/21 06:11 Hct 34.6 % (34.0-46.0) 03/26/21 06:11 MCV 86.2 fL (80.0-100.0) 03/26/21 06:11 MCH 29.0 pg (25.0-35.0) 03/26/21 06:11 MCHC 33.7 g/dL (31.0-37.0) 03/26/21 06:11 RDW 13.6 % (11.5-15.5) 03/26/21 06:11 Plt Count 224 k/uL (150-450) 03/26/21 06:11 MPV 7.1 03/26/21 06:11 Neutrophils % 73 % 03/25/21 22:51 Lymphocytes % 21 % 03/25/21 22:51 Monocytes % 3 % 03/25/21 22:51 Eosinophils % 1 % 03/25/21 22:51 Basophils % 0 % 03/25/21 22:51 Neutrophils # 6.5 k/uL (1.3-7.7) 03/25/21 22:51 Lymphocytes # 1.9 k/uL (1.0-4.8) 03/25/21 22:51 Monocytes # 0.3 k/uL (0-1.0) 03/25/21 22:51 Eosinophils # 0.1 k/uL (0-0.7) 03/25/21 22:51 Basophils # 0.0 k/uL (0-0.2) 03/25/21 22:51 Sodium 139 mmol/L (137-145) 03/26/21 13:14 Potassium 3.5 mmol/L (3.5-5.1) 03/26/21 13:14 Chloride 114 mmol/L (98-107) H 03/26/21 13:14 Carbon Dioxide 20 mmol/L (22-30) L 03/26/21 13:14 Anion Gap 5 mmol/L 03/26/21 13:14 BUN <2 mg/dL (7-17) L 03/26/21 13:14 Creatinine 0.53 mg/dL (0.52-1.04) 03/26/21 13:14 Est GFR (CKD-EPI)AfAm >90 (>60 ml/min/1.73 sqM) 03/26/21 13:14 Est GFR (CKD-EPI)NonAf >90 (>60 ml/min/1.73 sqM) 03/26/21 13:14 Glucose 81 mg/dL (74-99) 03/26/21 13:14 Calcium 8.6 mg/dL (8.4-10.2) 03/26/21 13:14 Total Bilirubin 0.3 mg/dL (0.2-1.3) 03/25/21 22:51 AST 17 U/L (14-36) 03/25/21 22:51 ALT 13 U/L (4-34) 03/25/21 22:51 Alkaline Phosphatase 72 U/L (38-126) 03/25/21 22:51 Total Protein 7.5 g/dL (6.3-8.2) 03/25/21 22:51 Albumin 4.3 g/dL (3.5-5.0) 03/25/21 22:51 Lipase 180 U/L (23-300) 03/25/21 22: TSH 2.880 mIU/L (0.465-4.680) 03/25/21 22:51 Urine HCG, Qual Not Detected (Not Detectd) 03/25/21 22: Salicylates <1.0 mg/dL 03/25/21 22:51 Urine Opiates Screen Not Detected (NotDetected) 03/25/21 22:26 Ur Oxycodone Screen Not Detected (NotDetected) 03/25/21 22: Urine Methadone Screen Not Detected (NotDetected) 03/25/21 22:26 Ur Propoxyphene Screen Not Detected (NotDetected) 03/25/21 22:26 Acetaminophen <10.0 ug/mL 03/25/21 22:51 Ur Barbiturates Screen Not Detected (NotDetected) 03/25/21 22:26 U Tricyclic Antidepress Not Detected (NotDetected) 03/25/21 22:26 Ur Phencyclidine Scrn Not Detected (NotDetected) 03/25/21 22:26 Ur Amphetamines Screen Not Detected (NotDetected) 03/25/21 22:26 U Methamphetamines Scrn Not Detected (NotDetected) 03/25/21 22:26 U Benzodiazepines Scrn Not Detected (NotDetected) 03/25/21 22:26 Urine Cocaine Screen Not Detected (NotDetected) 03/25/21 22:26 U Marijuana (THC) Screen Not Detected (NotDetected) 03/25/21 22:26 Serum Alcohol <10 mg/dL 03/25/21 22:51 Plan - Discharge Summary New Discharge Prescriptions: Continue Norgestimate-Ethinyl Estradiol [Sprintec 28 Day Tablet] 1 tab PO DAILY Discontinued Pantoprazole Sodium [Protonix] 40 mg PO DAILY #30 tab Discharge Medication List Norgestimate-Ethinyl Estradiol [Sprintec 28 Day Tablet] 1 tab PO DAILY 03/26/21 [History] Follow up Appointment(s)/Referral(s[facility] 12:00 pm [facility]Mary Carmen[facility] Patient Instructions/Handouts: How to Stop Smoking (DC), Depression (DC), Brief Psychotic Disorder (DC), Help Prevent Suicide (DC) Activity/Diet/Wound Care/Special Instructions: Activity and diet as tolerated. Avoid the use of street drugs and alcohol. Take all medications as prescribed. When you are in need of refills on your medications please contact your medical provider and/or outpatient psychiatrist to have this done. Please go to scheduled outpatient appointment for aftercare treatment. If symptoms return or become worse, call the crisis line at and/or go to the nearest emergency room for evaluation Discharge Disposition: HOME SELF-CARE
== END 2021-03-29 12:33 | disposition home or self-care (01) | DRG 918 ==
LOC: 3MHU 18:17
PROVIDERS: ADMIT Psychiatry & Neurology Psychiatry; ATTEND Psychiatry & Neurology Psychiatry
DX: T39.312A Poisoning by propionic acid derivatives, intentional self-harm, initial encounter (principal); R45.851 Suicidal ideations; F32.9 Major depressive disorder, single episode, unspecified; F60.3 Borderline personality disorder; F90.9 Attention-deficit hyperactivity disorder, unspecified type; J32.9 Chronic sinusitis, unspecified
CPT/HCPCS: 80053; 80061; 83036; 84443; 85025

== ENCOUNTER 2021-08-14 17:55 | Emergency (ER) | payer OTHER ==
[2021-08-14 18:17] VITALS: TEMP 97.8
--- NOTE | 2021-08-14 19:49 | ED ---
General Adult HPI - General Source: patient, RN notes reviewed, old records reviewed Mode of arrival: ambulatory Limitations: no limitations <Sincere Donis - Last Filed: 08/14/21 19:46> <Dash Mejia - Last Filed: 08/14/21 22:45> - General Chief complaint: Psychiatric Symptoms Stated complaint: petition Time Seen by Provider: 08/14/21 18:17 - History of Present Illness Initial comments: Patient is a 20-year-old female with past medical history remarkable for psychiatric illness, prior suicide attempts, presents emergency Department complaining of suicidal ideations. Patient was petitioned by police. The patient states "Glo told officers that she was driving home to kill herself. She was planning on taking a large amount of pills to overdose. Glo has done this before and has cut herself in the past." Patient states that she called because she was feeling extremely suicidal. Wanted to be seen before she attempted. Denies any homicidal ideations, attempts, plans. Denies any visual or auditory hallucinations. Denies drug use or alcohol use. Denies taking any medications or attempting to harm herself this evening. She states she was in a argument earlier today with her boyfriend. Is possible this is contributed to her feelings but she states that it is been slowly worsening over time. Presents for further evaluation at this time. (Sincere Donis) - Related Data Home Medications Medication Instructions Recorded Confirmed norgestimate-ethinyl estradioL 1 tab PO DAILY 03/26/21 08/14/21 [Sprintec 28 Day Tablet] Allergies Allergy/AdvReac Type Severity Reaction Status Date / Time No Known Allergies Allergy Verified 08/14/21 18:58 Review of Systems ROS Other: All systems not noted in ROS Statement are negative. <Sincere Donis - Last Filed: 08/14/21 19:46> ROS Other: All systems not noted in ROS Statement are negative. <Dash Mejia - Last Filed: 08/14/21 22:45> ROS Statement: Those systems with pertinent positive or pertinent negative responses have been documented in the HPI. Review of Systems: CONST: Denies fever EYES: Denies blurry vision ENT: Denies nasal congestion C/V: Denies Chest pain RESP: Denies shortness of breath GI: Denies abdominal pain : Denies dysuria SKIN: Denies rash. MSK: Denies joint pain. NEURO: Denies headache PSYCH: Denies homicidal ideations/plans/attempts. Denies visual or auditory hallucinations. She endorses suicidal ideations. Denies suicidal plans or attempts. (GagandeepRodneySincere) Past Medical History Past Medical History: No Reported History Additional Past Medical History / Comment(s): Past suicide attempts and self harm History of Any Multi-Drug Resistant Organisms: None Reported Past Surgical History: Section Past Anesthesia/Blood Transfusion Reactions: No Reported Reaction Past Psychological History: ADD/ADHD, Anxiety, Depression Smoking Status: Never smoker Past Alcohol Use History: None Reported Past Drug Use History: None Reported <GagandeepSincere - Last Filed: 08/14/21 19:46> General Exam Limitations: no limitations <GagandeepSincere - Last Filed: 08/14/21 19:46> General appearance: alert, in no apparent distress Head exam: Present: atraumatic, normocephalic, normal inspection Eye exam: Present: normal appearance, PERRL, EOMI. Absent: scleral icterus, conjunctival injection, periorbital swelling ENT exam: Present: normal exam, mucous membranes moist Neck exam: Present: normal inspection. Absent: tenderness, meningismus, lymphadenopathy Respiratory exam: Present: normal lung sounds bilaterally. Absent: respiratory distress, wheezes, rales, rhonchi, stridor Cardiovascular Exam: Present: regular rate, normal rhythm, normal heart sounds. Absent: systolic murmur, diastolic murmur, rubs, gallop, clicks GI/Abdominal exam: Present: soft, normal bowel sounds. Absent: distended, tenderness, guarding, rebound, rigid Extremities exam: Present: normal inspection, full ROM, normal capillary refill. Absent: tenderness, pedal edema, joint swelling, calf tenderness Back exam: Present: normal inspection Neurological exam: Present: alert, oriented X3, CN II-XII intact Psychiatric exam: Present: normal affect, normal mood Skin exam: Present: warm, dry, intact, normal color. Absent: rash <Dash Mejia - Last Filed: 08/14/21 22:45> - General Exam Comments Initial Comments: General: Appears in no acute distress. HEAD: Normal with no signs of head trauma. EYES: PERRLA, EOMI, conjunctiva normal, no discharge. ENT: Hearing grossly intact, normal oropharynx. RESPIRATORY: Clear breath sounds bilaterally. No wheezes, rales, or rhonchi. C/V: Regular rate and rhythm. S1 and S2 auscultated, no edema, peripheral pulses 2+ and intact throughout ABD: Abd is soft, nontender, nondistended EXT: Normal range of motion, no obvious deformity SKIN: No rashes or lesions observed on exposed skin. Has old scars from prior cutting attempts. No new scars. NEURO: Alert and oriented 4. (Sincere Donis) Course <Dash Mejia - Last Filed: 08/14/21 22:45> Vital Signs 08/14/21 18:15 Temperature 97.8 F Pulse Rate 123 H Respiratory 22 Rate Blood Pressure 132/89 O2 Sat by Pulse 100 Oximetry - Reevaluation(s) Reevaluation #1: 08/14/21 22:44 Medical record is reviewed (Dash Mejia) Reevaluation #2: 08/14/21 22:44 Medical clear for psychiatric evaluation (Dash Mejia) Medical Decision Making <Sincere Donis - Last Filed: 08/14/21 19:46> <Dash Mejia - Last Filed: 08/14/21 22:45> - Medical Decision Making Based on the patient's presentation and physical exam, I do believe she requires psychiatric evaluation. She was petitioned. She was placed in green scrubs, sitter was ordered, suicide precautions were ordered. BAT is 0. UDS is pending at this time. Covid is negative. Vital signs are within normal limits. At this time patient is medically cleared for evaluation by psychiatry. Disposition is pending psychiatric evaluation. (Sincere Donis) 20 female seen and evaluated by psychiatry, patient is seen and evaluated by psychiatry, patient seems stable for discharge home and can be discharged (Dash Mejia) - Lab Data Lab Results 08/14/21 08/14/21 Range/Units 18:55 19:39 Urine Opiates Screen Not Detected (NotDetected) Ur Oxycodone Screen Not Detected (NotDetected) Urine Methadone Screen Not Detected (NotDetected) Ur Propoxyphene Screen Not Detected (NotDetected) Ur Barbiturates Screen Not Detected (NotDetected) U Tricyclic Antidepress Not Detected (NotDetected) Ur Phencyclidine Scrn Not Detected (NotDetected) Ur Amphetamines Screen Not Detected (NotDetected) U Methamphetamines Scrn Not Detected (NotDetected) U Benzodiazepines Scrn Not Detected (NotDetected) Urine Cocaine Screen Not Detected (NotDetected) U Marijuana (THC) Screen Not Detected (NotDetected) Coronavirus (PCR) Not Detected (Not Detectd) Disposition <Sincere Donis - Last Filed: 08/14/21 19:46> Is patient prescribed a controlled substance at d/c from ED?: No <Dash Mejia - Last Filed: 08/14/21 22:45> Clinical Impression: Suicidal ideations, Encounter for psychiatric assessment, Depression Disposition: HOME SELF-CARE Condition: Fair Instructions (If sedation given, give patient instructions): Depression (ED) Referrals: None,Stated [Primary Care Provider] - 1-2 days
[2021-08-14 21:05] LABS: Amphetamine Screen,Urine Not Detected (NotDetected); Barbiturate Screen,Urine Not Detected (NotDetected); Benzodiazepines Screen,Urine Not Detected (NotDetected); Cocaine Screen,Urine Not Detected (NotDetected); Methadone Screen, Urine Not Detected (NotDetected); Opiate Screen,Urine Not Detected (NotDetected); Oxycodone Screen, Urine Not Detected (NotDetected); Phencyclidine Screen,Urine Not Detected (NotDetected); Tricyclic Antidepressant,Urine Not Detected (NotDetected); Urn Cannabinoid Scrn Not Detected (NotDetected)
[2021-08-14 23:01] VITALS: BP 106/75; PULSE 87; RESP 16
== END 2021-08-14 23:01 | disposition home or self-care (01) ==
LOC: EC 17:55
DX: Z00.8 Encounter for other general examination (principal); F32.A Depression, unspecified; R45.851 Suicidal ideations; Z20.822 Contact with and (suspected) exposure to COVID-19
CPT/HCPCS: 80306; 82075; 87635

== ENCOUNTER 2023-01-11 15:37 | Emergency (ER) | payer OTHER ==
[2023-01-11 15:52] VITALS: TEMP 98.2
--- NOTE | 2023-01-11 17:15 | ED ---
Psych HPI - General Source: patient, RN notes reviewed, old records reviewed Mode of arrival: ambulatory - History of Present Illness MD Complaint: suicidal ideation -: days(s) Associated Psychiatric Symptoms: other (borderline personality disorder) History of same: Yes Quality: getting worse Improves With: therapy Context: significant life stressor (breaking up with boyfriend , is still a source of support, with her today Clifford) If Self Harm: admits thoughts of self harm, has plan, has acted on plan (bottle 2 bottles of advil PM) <Renaldo Bravo - Last Filed: 01/12/23 00:02> <Sincere Donis - Last Filed: 01/12/23 14:26> - General Chief Complaint: Psychiatric Symptoms Stated Complaint: Mental Jose Eval Time Seen by Provider: 01/11/23 16:18 - History of Present Illness Initial Comments: 22-year-old female presents ambulatory to the emergency room with complaints of suicidal ideation with a plan. Patient states that she bought 2 bottles of Advil PM to take, has had previous attempts at overdose in the past. Last hospitalized in 2021 twice. She states that she does have a history of borderline personality disorder. Was seeing her therapist today who recommended she come to the hospital. Patient states she sees her therapist every other week. She was brought to the hospital by her ex-boyfriend Rober who is a source of support for her. Denies any alcohol or drug use today. No pain or discomfort. Denies any abuse. (Renaldo Braov) - Related Data Home Medications Medication Instructions Recorded Confirmed norgestimate-ethinyl estradioL 1 tab PO HS@2030 03/26/21 01/11/23 [Sprintec 28 Day Tablet] Allergies Allergy/AdvReac Type Severity Reaction Status Date / Time amoxicillin [From Augmentin] Allergy Rash/Hives Verified 01/11/23 20:10 clavulanic acid Allergy Rash/Hives Verified 01/11/23 20:10 [From Augmentin] heparin Allergy Rash/Hives Verified 01/11/23 20:10 Review of Systems ROS Other: All systems not noted in ROS Statement are negative. <Renaldo Bravo - Last Filed: 01/12/23 00:02> ROS Other: All systems not noted in ROS Statement are negative. <Sincere Donis - Last Filed: 01/12/23 14:26> ROS Statement: Those systems with pertinent positive or pertinent negative responses have been documented in the HPI. Past Medical History Past Medical History: No Reported History Additional Past Medical History / Comment(s): Past suicide attempts and self harm History of Any Multi-Drug Resistant Organisms: None Reported Past Surgical History: Section Past Anesthesia/Blood Transfusion Reactions: No Reported Reaction Past Psychological History: ADD/ADHD, Anxiety, Depression Smoking Status: Never smoker Past Alcohol Use History: None Reported Past Drug Use History: None Reported <Renaldo Bravo - Last Filed: 01/12/23 00:02> General Exam Limitations: no limitations ([place]) General appearance: alert, in no apparent distress Head exam: Present: atraumatic, normocephalic, normal inspection Eye exam: Present: normal appearance. Absent: scleral icterus, conjunctival injection, periorbital swelling Neck exam: Present: full ROM. Absent: tenderness, meningismus Respiratory exam: Present: normal lung sounds bilaterally. Absent: respiratory distress, wheezes, rales, rhonchi, stridor, chest wall tenderness, accessory muscle use Cardiovascular Exam: Present: tachycardia GI/Abdominal exam: Present: soft. Absent: distended, tenderness, guarding, rebound, rigid Extremities exam: Present: normal inspection, full ROM, normal capillary refill. Absent: tenderness, pedal edema, joint swelling, calf tenderness Back exam: Present: normal inspection, full ROM. Absent: tenderness, CVA tenderness (R), CVA tenderness (L) Neurological exam: Present: alert, oriented X3, normal gait Psychiatric exam: Present: depressed, suicidal ideation. Absent: agitated, anxious, manic Skin exam: Present: warm, dry, intact, normal color. Absent: rash, cyanosis, diaphoretic, petechiae, pallor <Renaldo Bravo - Last Filed: 01/12/23 00:02> Course Vital Signs 01/11/23 01/11/23 01/12/23 15:39 17:23 08:34 Temperature 98.2 F Pulse Rate 112 H 95 60 Respiratory 18 18 16 Rate Blood Pressure 124/85 120/60 O2 Sat by Pulse 99 99 98 Oximetry 01/12/23 13:00 Temperature Pulse Rate 86 Respiratory 16 Rate Blood Pressure 118/60 O2 Sat by Pulse 98 Oximetry Medical Decision Making - Lab Data Result diagrams: 01/11/23 19:43 01/11/23 19:43 <ShellyKeveni - Last Filed: 01/12/23 00:02> - Lab Data Result diagrams: 01/11/23 19:43 01/11/23 19:43 <GagandeepSincere - Last Filed: 01/12/23 14:26> - Medical Decision Making Was pt. sent in by a medical professional or institution (, [facility], ADMISSIONS MANAGER RN, urgent care, hospital, or [facility]...) When possible be specific @ -sent by her therapist Did you speak to anyone other than the patient for history (EMS, parent, family, police, friend...)? What history was obtained from this source @ -[No] Did you review nursing and triage notes (agree or disagree)? Why? @ -[I reviewed and agree with nursing and triage notes] Were old charts reviewed (outside hosp., previous admission, EMS record, old EKG, old radiological studies, urgent care reports/EKG's, [facility] records)? Report findings @ -[No old charts were reviewed] Differential Diagnosis (chest pain, altered mental status, abdominal pain women, abdominal pain men, vaginal bleeding, weakness, fever, dyspnea, syncope, headache, dizziness, GI bleed, back pain, seizure, CVA, palpatations, mental health, musculoskeletal)? @ -Differential Mental Health Depression, anxiety, bipolar, psychosis, schizophrenia, borderline personality, situational depression, adjustment disorder, behavioral disorder, brain tumor, malingering, substance abuse, encephalopathy, medication reaction, dementia, hypothyroidism, degenerative neurologic disorder, lupus.... This is not meant to be all-inclusive list EKG interpreted by me (3pts min.). @ -n/a X-rays interpreted by me (1pt min.). @ -[None done] CT interpreted by me (1pt min.). @ -[None done] U/S interpreted by me (1pt. min.). @ -[None done] What testing was considered but not performed or refused? (CT, X-rays, U/S, labs)? Why? @ -[None] What meds were considered but not given or refused? Why? @ -[None] Did you discuss the management of the patient with other professionals (professionals i.e. , PA, ADMISSIONS MANAGER RN, lab, RT, psych nurse, healthcare social worker, plate fitter, teacher, infantry weapons officer, adult protective caseworker)? Give summary @ -[No] Was smoking cessation discussed for >3mins.? @ -[No] Was critical care preformed (if so, how long)? @ -[No] Were there social determinants of health that impacted care today? How? (Homelessness, low income, unemployed, alcoholism, drug addiction, transporta tion, low edu. Level, literacy, decrease access to med. care, halfway, rehab)? @ -[No] Was there de-escalation of care discussed even if they declined (Discuss DNR or withdrawal of care, Hospice)? DNR status @ -[No] What co-morbidities impacted this encounter? (DM, HTN, Smoking, COPD, CAD, Cancer, CVA, ARF, Chemo, Hep., AIDS, mental health diagnosis, sleep apnea, morbid obesity)? @ -History of suicidal ideation and attempts, borderline personality disorder Was patient admitted / discharged? Hospital course, mention meds given and route, prescriptions, significant lab abnormalities, going to OR and other pertinent info. @ -22-year-old female presents ambulatory to the emergency room with complaints of suicidal ideation with a plan. Patient states that she bought 2 bottles of Advil PM to take, has had previous attempts at overdose in the past. Last hospitalized in 2021 twice. She states that she does have a history of borderline personality disorder. Was seeing her therapist today who recommended she come to the hospital. Patient states she sees her therapist every other week. She was brought to the hospital by her ex-boyfriend Rober who is a source of support for her. Denies any alcohol or drug use today. No pain or discomfort. Denies any abuse. Patient is on control, denies any chance of . States that she did not take any of the Advil PMs today. Denies any alcohol or drug use. She states that she is in a safe relationship. She is seeing a therapist every other week and did see her therapist today. Patient was medically cleared to be seen by psychiatric nurse. Disposition pending, case signed out to Dr Mejia Undiagnosed new problem with uncertain prognosis? @ -[No] Drug Therapy requiring intensive monitoring for toxicity (Heparin, Nitro, Insulin, Cardizem)? @ -[No] Were any procedures done? @ -[No] Diagnosis/symptom? @ -Suicidal ideation Acute, or Chronic, or Acute on Chronic? @ -Acute Uncomplicated (without systemic symptoms) or Complicated (systemic symptoms)? @ -Uncomplicated Side effects of treatment? @ -[No] Exacerbation, Progression, or Severe Exacerbation? @ -[No] Poses a threat to life or bodily function? How? (Chest pain, [place], [place], pneumonia, PE, COPD, DKA, ARF, appy, cholecystitis, CVA, Diverticulitis, Homicidal, Suicidal, threat to staff... and all critical care pts) @ -Yes suicidal ideation with a plan to overdose on Advil PM (Renaldo Bravo) Patient is a 22-year-old female was snowboarding in the emergency department pending psychiatric placement. Urgent presented suicidal ideations with a plan to overdose on Advil PM. She purchased multple bottles. Does have a history of overdose. No recent attempt. EPS evaluated the patient would like to transfer the patient for inpatient psychiatry. Clinical certificate completed by myself. Patient will be transferred to [facility]. Accepting physician is Dr. Reese. Diagnosis/symptom? @ -Suicidal, suicidal ideation, encounter for psychiatric evaluation Acute, or Chronic, or Acute on Chronic? @ -Acute Uncomplicated (without systemic symptoms) or Complicated (systemic symptoms)? @ -Uncomplicated Side effects of treatment? @ -none Exacerbation, Progression, or Severe Exacerbation] @ -no Poses a threat to life or bodily function? @ -Yes (Sincere Donis) - Lab Data Lab Results 01/11/23 01/11/23 01/11/23 Range/Units 17:22 17:22 19:43 WBC 6.8 (3.8-10.6) k/uL RBC 4.99 (3.80-5.40) m/uL Hgb 14.6 (11.4-16.0) gm/dL Hct 42.6 (34.0-46.0) % MCV 85.4 (80.0-100.0) fL MCH 29.3 (25.0-35.0) pg MCHC 34.3 (31.0-37.0) g/dL RDW 12.4 (11.5-15.5) % Plt Count 248 (150-450) k/uL MPV 7.5 Neutrophils % 56 % Lymphocytes % 39 % Monocytes % 3 % Eosinophils % 1 % Basophils % 0 % Neutrophils # 3.8 (1.3-7.7) k/uL Lymphocytes # 2.6 (1.0-4.8) k/uL Monocytes # 0.2 (0-1.0) k/uL Eosinophils # 0.1 (0-0.7) k/uL Basophils # 0.0 (0-0.2) k/uL Sodium (137-145) mmol/L Potassium (3.5-5.1) mmol/L Chloride (98-107) mmol/L Carbon Dioxide (22-30) mmol/L Anion Gap mmol/L BUN (7-17) mg/dL Creatinine (0.52-1.04) mg/dL Est GFR (CKD-EPI)AfAm (>60 ml/min/1.73 sqM) Est GFR (CKD-EPI)NonAf (>60 ml/min/1.73 sqM) Glucose (74-99) mg/dL Calcium (8.4-10.2) mg/dL Total Bilirubin (0.2-1.3) mg/dL AST (14-36) U/L ALT (4-34) U/L Alkaline Phosphatase (38-126) U/L Total Protein (6.3-8.2) g/dL Albumin (3.5-5.0) g/dL Urine Color Urine Appearance (Clear) Urine pH (5.0-8.0) Ur Specific [place] (1.001-1.035) Urine Protein (Negative) Urine Glucose (UA) (Negative) Urine Ketones (Negative) Urine Blood (Negative) Urine Nitrite (Negative) Urine Bilirubin (Negative) Urine Urobilinogen (<2.0) mg/dL Ur Leukocyte Esterase (Negative) Urine WBC (0-5) /hpf Ur Squamous Epith Cells (0-4) /hpf Urine Mucus (None) /hpf Urine HCG, Qual Not Detected (Not Detectd) Urine Opiates Screen Not Detected (NotDetected) Ur Oxycodone Screen Not Detected (NotDetected) Urine Methadone Screen Not Detected (NotDetected) Ur Propoxyphene Screen Not Detected (NotDetected) Ur Barbiturates Screen Not Detected (NotDetected) U Tricyclic Antidepress Not Detected (NotDetected) Ur Phencyclidine Scrn Not Detected (NotDetected) Ur Amphetamines Screen Not Detected (NotDetected) U Methamphetamines Scrn Not Detected (NotDetected) U Benzodiazepines Scrn Not Detected (NotDetected) Urine Cocaine Screen Not Detected (NotDetected) U Marijuana (THC) Screen Not Detected (NotDetected) Influenza Type A (PCR) (Not Detectd) Influenza Type B (PCR) (Not Detectd) RSV (PCR) (Not Detectd) SARS-CoV-2 (PCR) (Not Detectd) 01/11/23 01/11/23 01/11/23 Range/Units 19:43 19:43 19:45 WBC (3.8-10.6) k/uL RBC (3.80-5.40) m/uL Hgb (11.4-16.0) gm/dL Hct (34.0-46.0) % MCV (80.0-100.0) fL MCH (25.0-35.0) pg MCHC (31.0-37.0) g/dL RDW (11.5-15.5) % Plt Count (150-450) k/uL MPV Neutrophils % % Lymphocytes % % Monocytes % % Eosinophils % % Basophils % % Neutrophils # (1.3-7.7) k/uL Lymphocytes # (1.0-4.8) k/uL Monocytes # (0-1.0) k/uL Eosinophils # (0-0.7) k/uL Basophils # (0-0.2) k/uL Sodium 139 (137-145) mmol/L Potassium 4.3 (3.5-5.1) mmol/L Chloride 104 (98-107) mmol/L Carbon Dioxide 22 (22-30) mmol/L Anion Gap 13 mmol/L BUN 9 (7-17) mg/dL Creatinine 0.60 (0.52-1.04) mg/dL Est GFR (CKD-EPI)AfAm >90 (>60 ml/min/1.73 sqM) Est GFR (CKD-EPI)NonAf >90 (>60 ml/min/1.73 sqM) Glucose 91 (74-99) mg/dL Calcium 10.1 (8.4-10.2) mg/dL Total Bilirubin 0.7 (0.2-1.3) mg/dL AST 18 (14-36) U/L ALT 11 (4-34) U/L Alkaline Phosphatase 61 (38-126) U/L Total Protein 7.8 (6.3-8.2) g/dL Albumin 4.7 (3.5-5.0) g/dL Urine Color Yellow Urine Appearance Cloudy H (Clear) Urine pH 6.0 (5.0-8.0) Ur Specific [place] 1.030 (1.001-1.035) Urine Protein Trace H (Negative) Urine Glucose (UA) Negative (Negative) Urine Ketones 2+ (Negative) Urine Blood Negative (Negative) Urine Nitrite Negative (Negative) Urine Bilirubin Negative (Negative) Urine Urobilinogen <2.0 (<2.0) mg/dL Ur Leukocyte Esterase Trace H (Negative) Urine WBC 1 (0-5) /hpf Ur Squamous Epith Cells 13 H (0-4) /hpf Urine Mucus Many H (None) /hpf Urine HCG, Qual (Not Detectd) Urine Opiates Screen (NotDetected) Ur Oxycodone Screen (NotDetected) Urine Methadone Screen (NotDetected) Ur Propoxyphene Screen (NotDetected) Ur Barbiturates Screen (NotDetected) U Tricyclic Antidepress (NotDetected) Ur Phencyclidine Scrn (NotDetected) Ur Amphetamines Screen (NotDetected) U Methamphetamines Scrn (NotDetected) U Benzodiazepines Scrn (NotDetected) Urine Cocaine Screen (NotDetected) U Marijuana (THC) Screen (NotDetected) Influenza Type A (PCR) Not Detected (Not Detectd) Influenza Type B (PCR) Not Detected (Not Detectd) RSV (PCR) Not Detected (Not Detectd) SARS-CoV-2 (PCR) Not Detected (Not Detectd) Disposition <Renaldo Bravo - Last Filed: 01/12/23 00:02> <Sincere Donis - Last Filed: 01/12/23 14:26> Clinical Impression: Suicidal ideations, Feeling suicidal, Encounter for psychiatric assessment Disposition: TRANSFER TO PSYCH HOSP/UNIT Condition: Stable Referrals: Nonstaff,Physician [Primary Care Provider] - 1-2 days
[2023-01-11 18:54] LABS: Amphetamine Screen,Urine Not Detected (NotDetected); Barbiturate Screen,Urine Not Detected (NotDetected); Benzodiazepines Screen,Urine Not Detected (NotDetected); Cocaine Screen,Urine Not Detected (NotDetected); Methadone Screen, Urine Not Detected (NotDetected); Opiate Screen,Urine Not Detected (NotDetected); Oxycodone Screen, Urine Not Detected (NotDetected); Phencyclidine Screen,Urine Not Detected (NotDetected); Tricyclic Antidepressant,Urine Not Detected (NotDetected); Urn Cannabinoid Scrn Not Detected (NotDetected)
[2023-01-11 20:13] LABS: Appearance,Urine Cloudy (Clear); Bilirubin,Urine Negative (Negative); Color,Urine Yellow; Glucose,Urine (UA) Negative (Negative); Ketones,Urine 2+ (Negative); Mucus,Urine Many /hpf; Protein,Urine Trace (Negative); Squamous Epithelial Cell,Urine 13 /hpf (0-4); WBC,Urine 1 /hpf (0-5)
[2023-01-11 20:14] LABS: Blood,Urine Negative (Negative); Leukocyte Esterase,Urine Trace (Negative); Nitrite,Urine Negative (Negative); Urobilinogen,Urine <2.0 mg/dL (<2.0)
[2023-01-11 20:18] LABS: Basophils % (A) 0 %; Eosinophils # (A) 0.1 k/uL (0-0.7); Eosinophils % (A) 1 %; HCT 42.6 % (34.0-46.0); HGB 14.6 gm/dL (11.4-16.0); Lymphocytes # (A) 2.6 k/uL (1.0-4.8); Lymphocytes % (A) 39 %; MCH 29.3 pg (25.0-35.0); MCHC 34.3 g/dL (31.0-37.0); MCV 85.4 fL (80.0-100.0); Mean Platelet Volume 7.5; Monocytes # (A) 0.2 k/uL (0-1.0); Monocytes % (A) 3 %; Neutrophils # (A) 3.8 k/uL (1.3-7.7); Neutrophils % (A) 56 %; Platelet Count 248 k/uL (150-450); RBC 4.99 m/uL (3.80-5.40); RDW 12.4 % (11.5-15.5); WBC 6.8 k/uL (3.8-10.6)
[2023-01-11 20:41] LABS: ALT 11 U/L (4-34); AST 18 U/L (14-36); African American GFR (CKD) >90 (>60 ml/min/1.73 sqM); Albumin 4.7 g/dL (3.5-5.0); Alkaline Phosphatase 61 U/L (38-126); Anion Gap 13 mmol/L; Blood Urea Nitrogen 9 mg/dL (7-17); Calcium 10.1 mg/dL (8.4-10.2); Carbon Dioxide 22 mmol/L (22-30); Chloride 104 mmol/L (98-107); Glucose 91 mg/dL (74-99); Non-African American GFR(CKD) >90 (>60 ml/min/1.73 sqM); Potassium 4.3 mmol/L (3.5-5.1); Sodium 139 mmol/L (137-145); Total Bilirubin 0.7 mg/dL (0.2-1.3); Total Protein 7.8 g/dL (6.3-8.2)
[2023-01-12 08:37] VITALS: RESP 16
[2023-01-12 14:38] VITALS: BP 110/60; PULSE 68
== END 2023-01-12 14:35 ==
LOC: EC 15:37
DX: Z00.8 Encounter for other general examination (principal); R45.851 Suicidal ideations; Z20.822 Contact with and (suspected) exposure to COVID-19; Z88.0 Allergy status to penicillin; Z88.1 Allergy status to other antibiotic agents; Z88.8 Allergy status to other drugs, medicaments and biological substances
CPT/HCPCS: 36415; 80053; 80306; 81001; 81025; 82075; 85025; 87636; 99285

== ENCOUNTER 2024-03-23 15:53 | Emergency (ER) | payer OTHER ==
--- NOTE | 2024-03-23 16:52 | ED ---
Abdominal Pain HPI - General Source: patient, RN notes reviewed Mode of arrival: ambulatory Limitations: no limitations <Mabel Grimes - Last Filed: 03/23/24 16:51> <oBssman Jansen - Last Filed: 03/25/24 14:10> - General Chief Complaint: Abdominal Pain Stated Complaint: abd pain, fever Time Seen by Provider: 03/23/24 16:05 - History of Present Illness Initial Comments: [id number] female presented to the emergency department for bilateral flank pain, fever. and nausea over the past week. Patient was diagnosed with urinary tract infection at outside urgent care on Monday and started antibiotics on Monday. Patient denies dysuria, hematuria, increased urinary frequency urgency. Endorses bilateral flank pain. unaware what antibiotic she is currently on. (Mabel Grimes) 23-year-old female presenting with chief complaint of bilateral flank pain, nausea, fever. Patient reports that back on Monday she started having some dull lower back pain which she felt consistent with previous UTIs, she was seen at urgent care and started on antibiotics. She believes she was started on antibiotics, she is unsure which one. States that since then she has had pain that has been creeping up the sides of her back. She has had some vomiting. No dysuria or hematuria. No increased urinary urgency or frequency. No chest pain or difficulty breathing. No cough congestion or sore throat. Concerned that she is having worsening UTI despite her antibiotics (Bossman Jansen) - Related Data Home Medications Medication Instructions Recorded Confirmed norgestimate-ethinyl estradioL 1 tab PO HS@2030 03/26/21 01/11/23 [Sprintec 28 Day Tablet] Previous Rx's Medication Instructions Recorded Penicillin V Potassium [Pen Vee K] 500 mg PO QID 7 Days #28 tablet 03/23/24 Allergies Allergy/AdvReac Type Severity Reaction Status Date / Time amoxicillin [From Augmentin] Allergy Rash/Hives Verified 03/23/24 16:00 clavulanic acid Allergy Rash/Hives Verified 03/23/24 16:00 [From Augmentin] heparin Allergy Rash/Hives Verified 03/23/24 16:00 Review of Systems ROS Other: All systems not noted in ROS Statement are negative. <Mabel Grimes - Last Filed: 03/23/24 16:51> ROS Other: All systems not noted in ROS Statement are negative. <Bossman Jansen - Last Filed: 03/25/24 14:10> ROS Statement: Those systems with pertinent positive or pertinent negative responses have been documented in the HPI. Past Medical History Past Medical History: No Reported History Additional Past Medical History / Comment(s): Past suicide attempts and self harm History of Any Multi-Drug Resistant Organisms: None Reported Past Surgical History: Section Past Anesthesia/Blood Transfusion Reactions: No Reported Reaction Past Psychological History: ADD/ADHD, Anxiety, Depression Smoking Status: Never smoker Past Alcohol Use History: None Reported Past Drug Use History: None Reported <StieleCeasar hoangoe - Last Filed: 03/23/24 16:51> General Exam Limitations: no limitations <StieleCeasar hoangoe - Last Filed: 03/23/24 16:51> Limitations: no limitations General appearance: alert, in no apparent distress Head exam: Present: atraumatic, normocephalic, normal inspection Eye exam: Present: normal appearance, EOMI Neck exam: Present: normal inspection. Absent: meningismus Respiratory exam: Present: normal lung sounds bilaterally. Absent: respiratory distress, wheezes, rales, rhonchi, stridor Cardiovascular Exam: Present: normal rhythm, tachycardia, normal heart sounds. Absent: systolic murmur, diastolic murmur, rubs, gallop, clicks GI/Abdominal exam: Present: soft. Absent: distended, tenderness, guarding, r ebound, rigid Back exam: Present: normal inspection, tenderness Neurological exam: Present: alert, oriented X3 Psychiatric exam: Present: normal affect, normal mood Skin exam: Present: warm, dry, normal color <Bossman Jansen - Last Filed: 03/25/24 14:10> - General Exam Comments Initial Comments: Visual Physical Exam Vital signs reviewed General: Well-appearing, nontoxic, no acute distress. Head: Normocephalic, atraumatic Eyes: PERRLA, EOMI ENT: Airway patent Chest: Nonlabored breathing Skin: No visual rash, normal skin tone Neuro: Alert and oriented 3 Musculoskeletal: No gross abnormalities (Stieler,Mabel) Course Vital Signs 03/23/24 03/23/24 03/23/24 15:58 18:26 19:47 Temperature 98.7 F 99.7 F H Pulse Rate 116 H 112 H Respiratory 16 18 Rate Blood Pressure 123/85 104/71 O2 Sat by Pulse 100 98 Oximetry 03/23/24 03/23/24 22:23 22:45 Temperature 97.9 F Pulse Rate 102 H 94 Respiratory 18 17 Rate Blood Pressure 98/60 99/64 O2 Sat by Pulse 98 98 Oximetry Medical Decision Making <Mabel Grimes - Last Filed: 03/23/24 16:51> - Lab Data Result diagrams: 03/23/24 17:52 03/23/24 17:52 <Bossman Jansen - Last Filed: 03/25/24 14:10> - Medical Decision Making I completed the quick note portion of this chart signed Mabel Grimes PA-C (Mabel Grimes) Was pt. sent in by a medical professional or institution ([facility], [facility], urgent care, hospital, or fci...) When possible be specific @ -No Did you speak to anyone other than the patient for history (EMS, parent, family, police, friend...)? What history was obtained from this source @ -No Did you review nursing and triage notes (agree or disagree)? Why? @ -I reviewed and agree with nursing and triage notes Were old charts reviewed (outside hosp., previous admission, EMS record, old EKG, old radiological studies, urgent care reports/EKG's, fci records)? Report findings @ -No old charts were reviewed Differential Diagnosis (chest pain, altered mental status, abdominal pain women, abdominal pain men, vaginal bleeding, weakness, fever, dyspnea, syncope, heada yessica, dizziness, GI bleed, back pain, seizure, CVA, palpatations, mental health, musculoskeletal)? @ - MDM Differential Back Pain: Strain, zoster, cauda equina syndrome, epidural abscess, vertebral o steomyelitis, discitis, fracture, subluxation, disc herniation, DJD, spinal stenosis, dissection, AAA, pancreatitis, peptic ulcer disease, pyelonephritis, kidney stone this is not meant to be an all-inclusive list. EKG interpreted by me (3pts min.). @ -As above X-rays interpreted by me (1pt min.). @ -None done CT interpreted by me (1pt min.). @ -CT shows focus of gas in the urinary bladder lumen correlate with recent instrumentation. Correlate for cystitis with urinalysis. No evidence for obstructive uropathy or renal calculus. Cholelithiasis. U/S interpreted by me (1pt. min.). @ -None done What testing was considered but not performed or refused? (CT, X-rays, U/S, labs)? Why? @ -None What meds were considered but not given or refused? Why? @ -None Did you discuss the management of the patient with other professionals (professionals i.e. , PA, [facility], lab, RT, psych nurse, social worker delinquency prevention, corrections unit supervisor, teacher, commanding officer homicide squad, manager of case)? Give summary @ -I spoke with urologist on-call Dr. Gray regarding CT findings, he suspects that this is due to infection, advise placing the patient on antibiotics for anaerobic coverage Was smoking cessation discussed for >3mins.? @ -No Was critical care preformed (if so, how long)? @ -No Were there social determinants of health that impacted care today? How? (Homelessness, low income, unemployed, alcoholism, drug addiction, trans portation, low edu. Level, literacy, decrease access to med. care, alf, rehab)? @ -No Was there de-escalation of care discussed even if they declined (Discuss DNR or withdrawal of care, Hospice)? DNR status @ -No What co-morbidities impacted this encounter? (DM, HTN, Smoking, COPD, CAD, Cancer, CVA, ARF, Chemo, Hep., AIDS, mental health diagnosis, sleep apnea, morbid obesity)? @ -None Was patient admitted / discharged? Hospital course, mention meds given and route, prescriptions, significant lab abnormalities, going to OR and other pertinent info. @ -23-year-old female presenting with chief complaint of worsening flank pain fever and nausea. History and physical examination are conducted. WBC 3.5. Urine shows 14 squamous cells with 4 WBCs and less than 1 RBC. Negative hCG. She is negative for influenza, RSV, COVID. CT shows focus of gas in the urinary bladder. Patient denies any recent instrumentation. She is currently on antibiotics for her UTI, she is unsure which antibiotic. I spoke with Dr. Guardado regarding CT findings, he suspects that this is due to infection. Ad vised placing on antibiotics for anaerobic coverage. Patient is started on penicillin which she states has been successful in treating her UTIs in the past. She is educated on today's findings and provided with strict return parameters. Follow-up with PCP. Report back to ER with any new or worsening symptoms. Discussed return parameters and answered all questions. Patient conveyed verbal understanding and agreed to the plan. I discussed this case in detail with my attending Dr. Tipton Undiagnosed new problem with uncertain prognosis? @ -No Drug Therapy requiring intensive monitoring for toxicity (Heparin, Nitro, Insulin, Cardizem)? @ -No Were any procedures done? @ -No Diagnosis/symptom? @ -UTI Acute, or Chronic, or Acute on Chronic? @ -Acute Uncomplicated (without systemic symptoms) or Complicated (systemic symptoms)? @ -uncomplicated Side effects of treatment? @ -No Exacerbation, Progression, or Severe Exacerbation? @ -No Poses a threat to life or bodily function? How? (Chest pain, USA, ND, pneumonia, PE, COPD, DKA, ARF, appy, cholecystitis, CVA, Diverticulitis, Homicidal, Suicidal, threat to staff... and all critical care pts) @ -There is potential with any infection if not treated properly (Bossman Jansen) - Lab Data Lab Results 03/23/24 03/23/24 03/23/24 Range/Units 17:05 17:05 17:52 WBC 3.5 L (3.8-10.6) k/uL RBC 4.95 (3.80-5.40) m/uL Hgb 14.1 (11.4-16.0) gm/dL Hct 42.6 (34.0-46.0) % MCV 86.1 (80.0-100.0) fL MCH 28.4 (25.0-35.0) pg MCHC 33.0 (31.0-37.0) g/dL RDW 12.5 (11.5-15.5) % Plt Count 158 (150-450) k/uL MPV 7.1 Neutrophils % 74 % Lymphocytes % 15 % Monocytes % 4 % Eosinophils % 5 % Basophils % 1 % Neutrophils # 2.6 (1.3-7.7) k/uL Lymphocytes # 0.5 L (1.0-4.8) k/uL Monocytes # 0.1 (0-1.0) k/uL Eosinophils # 0.2 (0-0.7) k/uL Basophils # 0.0 (0-0.2) k/uL Sodium (137-145) mmol/L Potassium (3.5-5.1) mmol/L Chloride (98-107) mmol/L Carbon Dioxide (22-30) mmol/L Anion Gap mmol/L BUN (7-17) mg/dL Creatinine (0.52-1.04) mg/dL Est GFR (CKD-EPI)AfAm (>60 ml/min/1.73 sqM) Est GFR (CKD-EPI)NonAf (>60 ml/min/1.73 sqM) Glucose (74-99) mg/dL Plasma Lactic Acid Conrado (0.7-2.0) mmol/L Calcium (8.4-10.2) mg/dL Total Bilirubin (0.2-1.3) mg/dL AST (14-36) U/L ALT (4-34) U/L Alkaline Phosphatase (38-126) U/L Total Protein (6.3-8.2) g/dL Albumin (3.5-5.0) g/dL Amylase (30-110) U/L Lipase (23-300) U/L Urine Color Yellow Urine Appearance Cloudy H (Clear) Urine pH 6.0 (5.0-8.0) Ur Specific [place] 1.035 (1.001-1.035) Urine Protein 1+ H (Negative) Urine Glucose (UA) Negative (Negative) Urine Ketones 1+ H (Negative) Urine Blood Negative (Negative) Urine Nitrite Negative (Negative) Urine Bilirubin Negative (Negative) Urine Urobilinogen <2.0 (<2.0) mg/dL Ur Leukocyte Esterase Negative (Negative) Urine RBC <1 (0-5) /hpf Urine WBC 4 (0-5) /hpf Ur Squamous Epith Cells 14 H (0-4) /hpf Urine Mucus Moderate H (None) /hpf Urine HCG, Qual Not Detected (Not Detectd) Influenza Type A (PCR) (Not Detectd) Influenza Type B (PCR) (Not Detectd) RSV (PCR) (Not Detectd) SARS-CoV-2 (PCR) (Not Detectd) 02/15/25 02/15/25 02/15/25 Range/Units 17:52 17:52 19:12 WBC (3.8-10.6) k/uL RBC (3.80-5.40) m/uL Hgb (11.4-16.0) gm/dL Hct (34.0-46.0) % MCV (80.0-100.0) fL MCH (25.0-35.0) pg MCHC (31.0-37.0) g/dL RDW (11.5-15.5) % Plt Count (150-450) k/uL MPV Neutrophils % % Lymphocytes % % Monocytes % % Eosinophils % % Basophils % % Neutrophils # (1.3-7.7) k/uL Lymphocytes # (1.0-4.8) k/uL Monocytes # (0-1.0) k/uL Eosinophils # (0-0.7) k/uL Basophils # (0-0.2) k/uL Sodium 136 L (137-145) mmol/L Potassium 4.2 (3.5-5.1) mmol/L Chloride 103 (98-107) mmol/L Carbon Dioxide 20 L (22-30) mmol/L Anion Gap 13 mmol/L BUN 13 (7-17) mg/dL Creatinine 0.81 (0.52-1.04) mg/dL Est GFR (CKD-EPI)AfAm >90 (>60 ml/min/1.73 sqM) Est GFR (CKD-EPI)NonAf >90 (>60 ml/min/1.73 sqM) Glucose 99 (74-99) mg/dL Plasma Lactic Acid Conrado 0.9 (0.7-2.0) mmol/L Calcium 9.4 (8.4-10.2) mg/dL Total Bilirubin 0.6 (0.2-1.3) mg/dL AST 24 (14-36) U/L ALT 14 (4-34) U/L Alkaline Phosphatase 65 (38-126) U/L Total Protein 7.6 (6.3-8.2) g/dL Albumin 4.7 (3.5-5.0) g/dL Amylase 42 (30-110) U/L Lipase 63 (23-300) U/L Urine Color Urine Appearance (Clear) Urine pH (5.0-8.0) Ur Specific [place] (1.001-1.035) Urine Protein (Negative) Urine Glucose (UA) (Negative) Urine Ketones (Negative) Urine Blood (Negative) Urine Nitrite (Negative) Urine Bilirubin (Negative) Urine Urobilinogen (<2.0) mg/dL Ur Leukocyte Esterase (Negative) Urine RBC (0-5) /hpf Urine WBC (0-5) /hpf Ur Squamous Epith Cells (0-4) /hpf Urine Mucus (None) /hpf Urine HCG, Qual (Not Detectd) Influenza Type A (PCR) Not Detected (Not Detectd) Influenza Type B (PCR) Not Detected (Not Detectd) RSV (PCR) Not Detected (Not Detectd) SARS-CoV-2 (PCR) Not Detected (Not Detectd) 03/23/24 Range/Units 20:31 WBC (3.8-10.6) k/uL RBC (3.80-5.40) m/uL Hgb (11.4-16.0) gm/dL Hct (34.0-46.0) % MCV (80.0-100.0) fL MCH (25.0-35.0) pg MCHC (31.0-37.0) g/dL RDW (11.5-15.5) % Plt Count (150-450) k/uL MPV Neutrophils % % Lymphocytes % % Monocytes % % Eosinophils % % Basophils % % Neutrophils # (1.3-7.7) k/uL Lymphocytes # (1.0-4.8) k/uL Monocytes # (0-1.0) k/uL Eosinophils # (0-0.7) k/uL Basophils # (0-0.2) k/uL Sodium (137-145) mmol/L Potassium (3.5-5.1) mmol/L Chloride (98-107) mmol/L Carbon Dioxide (22-30) mmol/L Anion Gap mmol/L BUN (7-17) mg/dL Creatinine (0.52-1.04) mg/dL Est GFR (CKD-EPI)AfAm (>60 ml/min/1.73 sqM) Est GFR (CKD-EPI)NonAf (>60 ml/min/1.73 sqM) Glucose (74-99) mg/dL Plasma Lactic Acid Conrado (0.7-2.0) mmol/L Calcium (8.4-10.2) mg/dL Total Bilirubin (0.2-1.3) mg/dL AST (14-36) U/L ALT (4-34) U/L Alkaline Phosphatase (38-126) U/L Total Protein (6.3-8.2) g/dL Albumin (3.5-5.0) g/dL Amylase (30-110) U/L Lipase (23-300) U/L Urine Color Urine Appearance (Clear) Urine pH (5.0-8.0) Ur Specific [place] (1.001-1.035) Urine Protein (Negative) Urine Glucose (UA) (Negative) Urine Ketones (Negative) Urine Blood (Negative) Urine Nitrite (Negative) Urine Bilirubin (Negative) Urine Urobilinogen (<2.0) mg/dL Ur Leukocyte Esterase (Negative) Urine RBC (0-5) /hpf Urine WBC (0-5) /hpf Ur Squamous Epith Cells (0-4) /hpf Urine Mucus (None) /hpf Urine HCG, Qual (Not Detectd) Influenza Type A (PCR) Not Detected (Not Detectd) Influenza Type B (PCR) Not Detected (Not Detectd) RSV (PCR) Not Detected (Not Detectd) SARS-CoV-2 (PCR) Not Detected (Not Detectd) Disposition <Mabel Grimes - Last Filed: 03/23/24 16:51> Is patient prescribed a controlled substance at d/c from ED?: No Time of Disposition: 22:37 <Bossman Jansen - Last Filed: 03/25/24 14:10> Clinical Impression: UTI (urinary tract infection) Disposition: HOME SELF-CARE Condition: Good Instructions (If sedation given, give patient instructions): Urinary Tract Infection in Women (ED) Additional Instructions: Follow-up with PCP. Report back to ER with any new or worsening symptoms. Take medication as prescribed. Prescriptions: Penicillin V Potassium [Pen Vee K] 500 mg PO QID 7 Days #28 tablet Referrals: None,Stated [Primary Care Provider] - 1-2 days Forms: Area PCPs
[2024-03-23 17:34] LABS: Appearance,Urine Cloudy (Clear); Bilirubin,Urine Negative (Negative); Blood,Urine Negative (Negative); Color,Urine Yellow; Glucose,Urine (UA) Negative (Negative); Ketones,Urine 1+ (Negative); Leukocyte Esterase,Urine Negative (Negative); Mucus,Urine Moderate /hpf; Nitrite,Urine Negative (Negative); Protein,Urine 1+ (Negative); RBC,Urine <1 /hpf (0-5); Specific Gravity,Urine 1.035 (1.001-1.035); Squamous Epithelial Cell,Urine 14 /hpf (0-4); Urobilinogen,Urine <2.0 mg/dL (<2.0); WBC,Urine 4 /hpf (0-5)
[2024-03-23 18:12] LABS: Basophils % (A) 1 %; Eosinophils # (A) 0.2 k/uL (0-0.7); Eosinophils % (A) 5 %; HCT 42.6 % (34.0-46.0); HGB 14.1 gm/dL (11.4-16.0); Lymphocytes # (A) 0.5 k/uL (1.0-4.8); Lymphocytes % (A) 15 %; MCH 28.4 pg (25.0-35.0); MCV 86.1 fL (80.0-100.0); Mean Platelet Volume 7.1; Monocytes # (A) 0.1 k/uL (0-1.0); Monocytes % (A) 4 %; Neutrophils # (A) 2.6 k/uL (1.3-7.7); Neutrophils % (A) 74 %; Platelet Count 158 k/uL (150-450); RBC 4.95 m/uL (3.80-5.40); RDW 12.5 % (11.5-15.5); WBC 3.5 k/uL (3.8-10.6)
[2024-03-23 18:26] LABS: ALT 14 U/L (4-34); AST 24 U/L (14-36); African American GFR (CKD) >90 (>60 ml/min/1.73 sqM); Albumin 4.7 g/dL (3.5-5.0); Alkaline Phosphatase 65 U/L (38-126); Amylase 42 U/L (30-110); Anion Gap 13 mmol/L; Blood Urea Nitrogen 13 mg/dL (7-17); Calcium 9.4 mg/dL (8.4-10.2); Carbon Dioxide 20 mmol/L (22-30); Chloride 103 mmol/L (98-107); Glucose 99 mg/dL (74-99); Lipase 63 U/L (23-300); Non-African American GFR(CKD) >90 (>60 ml/min/1.73 sqM); Potassium 4.2 mmol/L (3.5-5.1); Sodium 136 mmol/L (137-145); Total Bilirubin 0.6 mg/dL (0.2-1.3); Total Protein 7.6 g/dL (6.3-8.2)
--- NOTE | 2024-03-23 18:47 | CT ---
EXAMINATION TYPE: CT abdomen pelvis w con DATE OF EXAM: 03/23/2024 6:31 PM COMPARISON: None CLINICAL INDICATION: Female, 23 years old with history of flank pain, fevers and chills; flank pain, fevers and chills, body aches. TECHNIQUE: Axial CT abdomen pelvis w con;Sagittal and coronal reformats were created on a separate w orkstation. Contrast used:100 mL of Isovue 300 with IV Contrast, (none if empty) Oral contrast used: without Oral Contrast (none if empty) CT DLP: 565.7 mGycm, Automated exposure control for dose reduction was used. FINDINGS: LOWER CHEST: Unremarkable ABDOMEN LIVER: Unremarkable GALLBLADDER AND BILE DUCTS: Layering increased densities within the lumen consistent with gallstones are present. PANCREAS: Unremarkable. SPLEEN: Unremarkable. ADRENAL GLANDS: Unremarkable. KIDNEYS AND URETERS: No evidence of hydronephrosis or renal calculus. The ureters are unremarkable. PELVIS BLADDER: No evidence for wall thickening or mass given limitations of exam. REPRODUCTIVE: Anteverted with low attenuating endometrium ABDOMEN & PELVIS STOMACH AND BOWEL: No evidence of bowel obstruction. What is thought to represent the appendix appear s within normal limits.e PERITONEUM/RETROPERITONEUM: No evidence of pneumoperitoneum or free fluid. VASCULATURE: No evidence of aortic aneurysm. MUSCULOSKELETAL: No acute osseous abnormalities LYMPH NODES: No gross evidence for lymphadenopathy. SOFT TISSUE/ABDOMINAL WALL: Unremarkable IMPRESSION: 1. Focus of gas in the urinary bladder lumen correlate with recent instrumentation. Correlate for cy stitis with urinalysis. No evidence for obstructive uropathy or renal calculus. 2. Cholelithiasis. [facility], , 03/23/2024 6:44 PM
[2024-03-23] MEDS: ACETAMINOPHEN TAB 325 MG TAB PO STA (19:08)
[2024-03-23] MEDS: SODIUM CHLORIDE 0.9% 1,000 ML IV ONE (19:08)
[2024-03-23] MEDS: KETOROLAC 15 MG/ML 1 ML VIAL IVP STA (19:49)
[2024-03-23] MEDS: ONDANSETRON 4 MG/2 ML VIAL IVP STA (19:50)
[2024-03-23 20:02] LABS: Influenza A Not Detected (Not Detectd); Influenza B Not Detected (Not Detectd); RSV Not Detected (Not Detectd)
[2024-03-23 21:30] LABS: Influenza A Not Detected (Not Detectd); Influenza B Not Detected (Not Detectd); RSV Not Detected (Not Detectd)
[2024-03-23 22:46] VITALS: BP 99/64; PULSE 94; RESP 17; TEMP 97.9
[2024-03-23] MEDS: cefTRIAXone IN SWFI 1,000 MG/10 ML SYRINGE IVP ONE (22:55)
== END 2024-03-23 23:01 | disposition home or self-care (01) ==
LOC: EC 15:53
DX: N39.0 Urinary tract infection, site not specified (principal); Z88.0 Allergy status to penicillin; Z88.1 Allergy status to other antibiotic agents; Z88.8 Allergy status to other drugs, medicaments and biological substances
CPT/HCPCS: 36415; 80053; 82150; 83605; 83690; 85025; 81001; 81025; 87636; 74177; 99284; 96374; 96375; J0696; J1885; Q9967